=== PATIENT | male | born 1975 | race Caucasian/White ===

== ENCOUNTER 2020-10-16 06:04 | Inpatient (IN) ==
[2020-10-16 06:48] LABS: ABG ALLEN TEST POS; ABG BASE EXCESS 5.8 mmol/L (-2.0-2.0); ABG HCO3 27.5 mmol/L (22-26)
--- NOTE | 2020-10-16 06:48 | RAD ---
HISTORYCOVID-19, SOB BODY ACHES, HEADACHESTUDYCHEST, 1 VIEWCOMPARISONNoneFINDINGSCardiac silhouette is normal in size. There are patchy airspace opacities throughout the peripheral left lung and right lung base. There is no significant pleural effusion or pneumothorax.IMPRESSIONLeft greater than right airspace disease as above, which given patient history is most compatible with multifocal atypical pneumonia from COVID-19 infection. Clinical correlation and continued PA/lateral radiographic follow-up recommended.Electronically signed by: ALISON EDWARDS (Oct 16, 2020 06:46:16)
[2020-10-16 06:49] LABS: BASOPHILS % (AUTO) 0.4 % (0.2-1.0); LYMPHOCYTES # (AUTO) 1.3 X10^3/uL (1.3-2.9); MEAN CORPUSCULAR HEMOGLOBIN 29.8 pg (27.0-34.0)
[2020-10-16 06:51] LABS: HEMATOCRIT 41.2 % (42.0-54.0); HEMOGLOBIN 14.2 g/dL (13.5-18.0); LYMPHOCYTES % (AUTO) 14.5 % (21.0-51.0); MEAN CORPUSCULAR HGB CONC 34.5 g/dL (33.0-35.0); MEAN CORPUSCULAR VOLUME 86.5 fL (80.0-100.0); MEAN PLATELET VOLUME 7.7 fL (7.4-11.0); MONOCYTES % (AUTO) 11.3 % (0.0-13.0); NEUTROPHILS # (AUTO) 6.4 x10^3/uL (2.2-4.8); NEUTROPHILS % (AUTO) 73.8 % (42.0-75.0); PLATELET COUNT 233 X10^3/uL (150.0-450.0); RED BLOOD COUNT 4.76 X10^6/uL (4.7-6.0); RED CELL DISTRIBUTION WIDTH 13.4 % (11.6-16.5)
[2020-10-16 07:01] LABS: ALANINE AMINOTRANSFERASE 25 Units/L (12-78); ALKALINE PHOSPHATASE 51 Units/L (46-116); ASPARTATE AMINO TRANSFERASE 40 Units/L (15-37); BLOOD UREA NITROGEN 10 mg/dL (7-18); CALCIUM 7.7 mg/dL (8.5-10.1); CARBON DIOXIDE 28.4 mmol/L (21-32); CHLORIDE 104 mmol/L (98-107); COR CA(FOR HYPOALB) 8.5 mg/dL (8.5-10.1); CREATININE 0.95 mg/dL (0.70-1.30); SODIUM 142 mmol/L (136-145); TOTAL PROTEIN 7.1 g/dL (6.4-8.2); eGFR NON BLACK RACES > 60 (>60)
--- NOTE | 2020-10-16 07:12 | DR.SOBA ---
HPI Time Seen Time Seen by Provider: 10/16/20 07:06 Primary Care Physician Primary Care Physician: PAGE HPI Comment HPI Comment: Cough and congestion x one week; diagnosed with covid ; getting worse despite abx with body aches, choi, fevers, chills, and sob; is now sick.. Complaints Chief Complaint:: PT STATES" I HAVE BEEN SICK SINCE LAST SATURDAY MY HEAD IS ABOUT TO BUST AND MY BODY IS HURTING ALL OVER" Source History Provided: Patient Mode of Arrival Mode of Arrival: Ambulatory Timing Onset of Chief Complaint: 10/08/20 PMH PMH Past Medical History: No Past Surgical History: Yes Surgical History: Bowel Resection and Cholecystectomy Family History History of Family Medical Conditions: Yes Family Medical History: Coronary Artery Disease Social History Type of Tobacco Use: None Does any household member use tobacco: No Alcohol Use: Occasionally Do you use any recreational Drugs:: No Lives With: Family Lives Where: Home Infectious screening In the last 2 months have you had wt loss of >10#?: NO Have you had fever, night sweats or hemotysis?: No Have you traveled outside the country in the last 6 months?: No Isolation: Droplet ROS Review of Systems Eyes: No Symptoms Reported ENTM: No Symptoms Reported Cardiovascular: No Symptoms Reported Gastrointestinal/Abdominal: No Symptoms Reported Genitourinary: No Symptoms Reported Integumentary: No Symptoms Reported Hematologic/Lymphatic: No Symptoms Reported Endocrine: No Symptoms Reported Psychiatric: No Symptoms Reported PE Vital Signs Vitals: Temperature 100.5 F Pulse Rate 107 Respiratory Rate 22 Blood Pressure [Right Arm] 136/85 Blood Pressure 142/85 O2 Sat by Pulse Oximetry 93 General Limitations: No Limitations General Appearance: Alert (appears mod-severely ill) and In No Apparent Distress Head Head Exam: Normal Inspection and Atraumatic Eyes Eye exam: Normal Appearance ENT ENT Exam: Normal Exam and Normal Oropharynx Neck Neck Exam: Normal Inspection, Full ROM and Trachea Midline Chest Chest Inspection: Normal Inspection and Symmetric Chest Wall Rise Respiratory Respiratory Exam: Bilateral: Decreased Breath Sounds (scattered crackles in bases) Cardiovascular Cardiovascular Exam: Normal Rhythm and Tachycardia Abdominal Exam Abdominal Exam: Normal Inspection, Normal Bowel Sounds and Soft Extremities Extremities Exam: Normal Inspection and Full ROM Back Back Exam: Normal Inspection Neurologic Neurological Exam: Alert, Oriented X3 and CN II-XII Intact Psychiatric Psychiatric Exam: Normal Affect and Normal Mood Skin Skin Exam: Warm, Intact and Diaphoresis COURSE Consultation Call Returned: 07:35 (Dr Garcia accepts admission) ROR Labs Reviewed Result Diagrams: 10/16/20 06:41 10/16/20 06:41 Laboratory: WBC 9.9 X10^3/uL (3.6-10.0) 10/16/20 06:41 RBC 4.76 X10^6/uL (4.7-6.0) 10/16/20 06:41 Hgb 14.2 g/dL (13.5-18.0) 10/16/20 06:41 Hct 41.2 % (42.0-54.0) L 10/16/20 06:41 MCV 86.5 fL (80.0-100.0) 10/16/20 06:41 MCH 29.8 pg (27.0-34.0) 10/16/20 06:41 MCHC 34.5 g/dL (33.0-35.0) 10/16/20 06:41 RDW 13.4 % (11.6-16.5) 10/16/20 06:41 Plt Count 233 X10^3/uL (150.0-450.0) 10/16/20 06:41 Plt Count Comment Adequate (ADEQUATE) 10/16/20 06:41 MPV 7.7 fL (7.4-11.0) 10/16/20 06:41 Neut % (Auto) 73.8 % (42.0-75.0) 10/16/20 06:41 Lymph % (Auto) 14.5 % (21.0-51.0) L 10/16/20 06:41 [place] % (Auto) 11.3 % (0.0-13.0) 10/16/20 06:41 Eos % (Auto) 0.0 % (0.9-2.9) L 10/16/20 06:41 Baso % (Auto) 0.4 % (0.2-1.0) 10/16/20 06:41 Neut # (Auto) 6.4 x10^3/uL (2.2-4.8) H 10/16/20 06:41 Lymph # (Auto) 1.3 X10^3/uL (1.3-2.9) 10/16/20 06:41 [place] # (Auto) 1.0 x10^3/uL (0.3-0.8) H 10/16/20 06:41 Eos # (Auto) 0.0 x10^3/uL (0.0-0.2) 10/16/20 06:41 Baso # (Auto) 0.0 X10^3/uL (0.0-0.1) 10/16/20 06:41 Absolute Nucleated RBC 0.1 /100WBC 10/16/20 06:41 Plt Morphology Comment Normal (NORMAL) 10/16/20 06:41 RBC Morphology Normal (NORMAL) 10/16/20 06:41 D-Dimer 0.50 ug/ml (0.0-0.57) 10/16/20 06:41 Sample Site Rr 10/16/20 06:24 ABG pH 7.570 (7.35-7.45) H* 10/16/20 06:24 ABG pCO2 30.0 mmHg (35.0-45.0) L 10/16/20 06:24 ABG pO2 57.0 mmHg (80.0-100.0) L 10/16/20 06:24 ABG HCO3 27.5 mmol/L (22-26) H 10/16/20 06:24 ABG O2 Saturation 93.0 % (90-100) 10/16/20 06:24 ABG Base Excess 5.8 mmol/L (-2.0-2.0) H 10/16/20 06:24 Phillip Test Pos 10/16/20 06:24 A-a Gradient 55.0 mmHg 10/16/20 06:24 FiO2 21.0 10/16/20 06:24 Blood Gas Comments Fozia well sw 10/16/20 06:24 Sodium 142 mmol/L (136-145) 10/16/20 06:41 Corrected Sodium TNP 10/16/20 06:41 Potassium 3.8 mmol/L (3.5-5.1) 10/16/20 06:41 Chloride 104 mmol/L (98-107) 10/16/20 06:41 Carbon Dioxide 28.4 mmol/L (21-32) 10/16/20 06:41 BUN 10 mg/dL (7-18) 10/16/20 06:41 Creatinine 0.95 mg/dL (0.70-1.30) 10/16/20 06:41 Est GFR (MDRD) Af Amer > 60 (>60) 10/16/20 06:41 Est GFR (MDRD) Non-Af > 60 (>60) 10/16/20 06:41 Glucose 109 mg/dL (65-99) H 10/16/20 06:41 Calcium 7.7 mg/dL (8.5-10.1) L 10/16/20 06:41 Corrected Calcium 8.5 mg/dL (8.5-10.1) 10/16/20 06:41 Ferritin 450 ng/mL (26-388) H 10/16/20 06:41 Total Bilirubin 0.20 mg/dL (0.2-1.0) 10/16/20 06:41 AST 40 Units/L (15-37) H 10/16/20 06:41 ALT 25 Units/L (12-78) 10/16/20 06:41 Alkaline Phosphatase 51 Units/L (46-116) 10/16/20 06:41 C-Reactive Protein 33.70 mg/L (0-3.0) H 10/16/20 06:41 B-Natriuretic Peptide 29.1 pg/mL (0-79) 10/16/20 06:41 Total Protein 7.1 g/dL (6.4-8.2) 10/16/20 06:41 Albumin 3.0 g/dL (3.4-5.0) L 10/16/20 06:41 Globulin 4.1 g/dL (2.5-4.5) 10/16/20 06:41 Albumin/Globulin Ratio 0.7 Ratio (1.1-2.1) L 10/16/20 06:41 SARS-CoV-2 (PCR) Positive (NEGATIVE) A 10/16/20 06:26 Influenza Type A (PCR) Negative (NEGATIVE) 10/16/20 06:26 Influenza Type B (PCR) Negative (NEGATIVE) 10/16/20 06:26 RSV (PCR) Negative (NEGATIVE) 10/16/20 06:26 XRAY XRAY Interpreted by: Radiologist X-ray Results: cxr: Left greater than right airspace disease as above, which given patient history is most compatible with multifocal atypical pneumonia from COVID-19 infection. Clinical correlation and continued PA/lateral radiographic follow-up recommended. Opioid Opioid Risk Tool Total: 0 Total Score Risk Category: Low Risk Copyright: [facility] predicting aberrant behaviors Diagnosis Discharge Problem: Bilateral interstitial pneumonia, Hypoxia Sepsis Qualifiers: Sepsis type: sepsis due to unspecified organism Sepsis acute organ dysfunction status: with acute organ dysfunction Severe sepsis acute organ dysfunction type: acute respiratory failure Acute respiratory failure type: with hypoxia Severe sepsis shock status: without septic shock Qualified Code(s): A41.9 - Sepsis, unspecified organism Headache Qualifiers: Headache type: other headache syndrome Qualified Code(s): G44.89 - Other headache syndrome
[2020-10-16] MEDS ORDERED: ZOSYN VIAL 3.375 GRAMS 3.375 G in NS 100 ML IV + SPIKE MINIBAG* 100 ML IV ONE (07:23)
[2020-10-16] MEDS ORDERED: NS 1000 ML 1,000 ML IV ONE (07:23)
[2020-10-16] MEDS ORDERED: TORADOL 30 MG VIAL IVP ONE (07:24)
[2020-10-16] MEDS ORDERED: NORCO 7.5/325 MG TAB PO ONE (07:24)
[2020-10-16 07:27] LABS: PLATELET MORPHOLOGY COMMENT NORMAL (NORMAL)
[2020-10-16 07:28] LABS: WHITE BLOOD COUNT 9.9 X10^3/uL (3.6-10.0)
[2020-10-16] MEDS ORDERED: NS 1000 ML 1,000 ML ONE ×3 (07:34→23:26)
[2020-10-16] MEDS ORDERED: TORADOL 30 MG VIAL ONE (07:34)
[2020-10-16] MEDS ORDERED: ZOSYN VIAL 3.375 GRAMS IV ONE ×3 (07:34→13:15)
[2020-10-16] MEDS ORDERED: NORCO 7.5/325 MG TAB ONE (07:34)
[2020-10-16] MEDS ORDERED: NS 100 ML IV + SPIKE MINIBAG* 100 ML IV ONE ×3 (07:35→13:15)
[2020-10-16] MEDS ORDERED: OFIRMEV IV 1000 MG VIAL 1,000 MG/100 ML VIAL IV PRN (07:45)
[2020-10-16] MEDS ORDERED: NORCO 5/325 MG TAB PO PRN (07:45)
[2020-10-16] MEDS ORDERED: ZOFRAN INJ 4 MG VIAL IVP PRN (07:54)
[2020-10-16] MEDS: NS 1000 ML 1,000 ML IV SCH ×2 (08:49→15:21)
[2020-10-16] MEDS: ZOSYN VIAL 3.375 GRAMS 3.375 G in NS 100 ML IV + SPIKE MINIBAG* 100 ML IV SCH ×3 (09:22→23:16)
[2020-10-16] MEDS ORDERED: PHARMACY CONSULT - IVERMECTIN XX SCH (12:00)
--- NOTE | 2020-10-16 12:11 | DR.H&P ---
H&P History & Physical for Day of: H&P Date: 10/16/20 Chief Complaint Chief Complaint: Generalized weakness, Fevers, chills Shortness of breath, Headache Allergies Allergies Allergy/AdvReac Type Severity Reaction Status Date / Time levofloxacin [From Levaquin] AdvReac Verified 10/16/20 09:37 History of Present Illness History of Present Illness: Pt is a 45 year old male past medical history of Hyperlipidemia presenting after having fever, chills, shortness of breath, fatigue, weakness, and headaches for over week. Pt reports being tested multiple times for COVID-19 without positive result until recently. He states that his symptoms have progressively worsened over the past 2-3 days and he is having difficulty sleeping at night. Labs/imaging: COVID-19 positive, Wbc 9.9, Hgb 14.2, Plt 233, Na 142, K 3.8, Creatinine 0.95, Glucose 109, LA 1.5, AST 40, ALT 25, ALKP 51, CRP 33, BNP 29, D-dimer 0.50, ABG: pH 7.57, pCO2 30, pO2 57, HCO3 27, O2sat 93% on FiO2 21%. Blood culture pending, CXR: Left greater than right airspace disease as above, which given patient history is most compatible with multifocal atypical pneumonia from COVID-19 infection. Will start patient on treatment course that includes: IVF NS@75ml/h, Remdesivir, Solumedrol 80mg q8h, scheduled Bronchodilators, Antibiotics: Zosyn, Ivermectin, immune supporting supplements, supplemental O2, I/S, Respiratory therapy consult, Pneumonia protocol. He is currently requiring 2L nasal cannula supplemental oxygen, will titrate/wean as tolerated. Resume home medications. Continue to monitor and follow up labs/imaging. Time spent on clinical assessment, reviewing labs and imaging, decision making, and documentation greater than 45 minutes. Past Medical History Past Medical History: Dyslipidemia Past Surgical History Surgical History: Bowel Resection and Cholecystectomy Family History Family Medical History: Coronary Artery Disease Social History Type of Tobacco Use: None Does any household member use tobacco: No Alcohol Use: Occasionally Medications Home Medications: levofloxacin [From Levaquin] Adverse Reaction (Verified 10/16/20 09:37) CONTINUE taking the following medications albuterol sulfate 1 puff INHALATION PRN PRN 10/16/20 [History] hydroxychloroquine 200 mg PO BID 10/16/20 [History] ivermectin 24 mg PO DAILY 10/16/20 [History] levofloxacin 500 mg PO BID 10/16/20 [History] Labs Result Diagrams: 10/16/20 06:41 10/16/20 06:41 Labs: Laboratory WBC 9.9 X10^3/uL (3.6-10.0) 10/16/20 06:41 RBC 4.76 X10^6/uL (4.7-6.0) 10/16/20 06:41 Hgb 14.2 g/dL (13.5-18.0) 10/16/20 06:41 Hct 41.2 % (42.0-54.0) L 10/16/20 06:41 MCV 86.5 fL (80.0-100.0) 10/16/20 06:41 MCH 29.8 pg (27.0-34.0) 10/16/20 06:41 MCHC 34.5 g/dL (33.0-35.0) 10/16/20 06:41 RDW 13.4 % (11.6-16.5) 10/16/20 06:41 Plt Count 233 X10^3/uL (150.0-450.0) 10/16/20 06:41 Plt Count Comment Adequate (ADEQUATE) 10/16/20 06:41 MPV 7.7 fL (7.4-11.0) 10/16/20 06:41 Neut % (Auto) 73.8 % (42.0-75.0) 10/16/20 06:41 Lymph % (Auto) 14.5 % (21.0-51.0) L 10/16/20 06:41 [place] % (Auto) 11.3 % (0.0-13.0) 10/16/20 06:41 Eos % (Auto) 0.0 % (0.9-2.9) L 10/16/20 06:41 Baso % (Auto) 0.4 % (0.2-1.0) 10/16/20 06:41 Neut # (Auto) 6.4 x10^3/uL (2.2-4.8) H 10/16/20 06:41 Lymph # (Auto) 1.3 X10^3/uL (1.3-2.9) 10/16/20 06:41 [place] # (Auto) 1.0 x10^3/uL (0.3-0.8) H 10/16/20 06:41 Eos # (Auto) 0.0 x10^3/uL (0.0-0.2) 10/16/20 06:41 Baso # (Auto) 0.0 X10^3/uL (0.0-0.1) 10/16/20 06:41 Absolute Nucleated RBC 0.1 /100WBC 10/16/20 06:41 Plt Morphology Comment Normal (NORMAL) 10/16/20 06:41 RBC Morphology Normal (NORMAL) 10/16/20 06:41 D-Dimer 0.50 ug/ml (0.0-0.57) 10/16/20 06:41 Sample Site Rr 10/16/20 06:24 ABG pH 7.570 (7.35-7.45) H* 10/16/20 06:24 ABG pCO2 30.0 mmHg (35.0-45.0) L 10/16/20 06:24 ABG pO2 57.0 mmHg (80.0-100.0) L 10/16/20 06:24 ABG HCO3 27.5 mmol/L (22-26) H 10/16/20 06:24 ABG O2 Saturation 93.0 % (90-100) 10/16/20 06:24 ABG Base Excess 5.8 mmol/L (-2.0-2.0) H 10/16/20 06:24 Phillip Test Pos 10/16/20 06:24 A-a Gradient 55.0 mmHg 10/16/20 06:24 FiO2 21.0 10/16/20 06:24 Blood Gas Comments Fozia well sw 10/16/20 06:24 Sodium 142 mmol/L (136-145) 10/16/20 06:41 Corrected Sodium TNP 10/16/20 06:41 Potassium 3.8 mmol/L (3.5-5.1) 10/16/20 06:41 Chloride 104 mmol/L (98-107) 10/16/20 06:41 Carbon Dioxide 28.4 mmol/L (21-32) 10/16/20 06:41 BUN 10 mg/dL (7-18) 10/16/20 06:41 Creatinine 0.95 mg/dL (0.70-1.30) 10/16/20 06:41 Est GFR (MDRD) Af Amer > 60 (>60) 10/16/20 06:41 Est GFR (MDRD) Non-Af > 60 (>60) 10/16/20 06:41 Glucose 109 mg/dL (65-99) H 10/16/20 06:41 Lactic Acid 1.5 mmol/L (0.4-2.0) 10/16/20 07:37 Calcium 7.7 mg/dL (8.5-10.1) L 10/16/20 06:41 Corrected Calcium 8.5 mg/dL (8.5-10.1) 10/16/20 06:41 Ferritin 450 ng/mL (26-388) H 10/16/20 06:41 Total Bilirubin 0.20 mg/dL (0.2-1.0) 10/16/20 06:41 AST 40 Units/L (15-37) H 10/16/20 06:41 ALT 25 Units/L (12-78) 10/16/20 06:41 Alkaline Phosphatase 51 Units/L (46-116) 10/16/20 06:41 C-Reactive Protein 33.70 mg/L (0-3.0) H 10/16/20 06:41 B-Natriuretic Peptide 29.1 pg/mL (0-79) 10/16/20 06:41 Total Protein 7.1 g/dL (6.4-8.2) 10/16/20 06:41 Albumin 3.0 g/dL (3.4-5.0) L 10/16/20 06:41 Globulin 4.1 g/dL (2.5-4.5) 10/16/20 06:41 Albumin/Globulin Ratio 0.7 Ratio (1.1-2.1) L 10/16/20 06:41 SARS-CoV-2 (PCR) Positive (NEGATIVE) A 10/16/20 06:26 Influenza Type A (PCR) Negative (NEGATIVE) 10/16/20 06:26 Influenza Type B (PCR) Negative (NEGATIVE) 10/16/20 06:26 RSV (PCR) Negative (NEGATIVE) 08/08/21 06:26 Review of Systems Constitutional: Fever, Chills and Weakness Eyes: No Symptoms Reported ENT: No Symptoms Reported Respiratory: Cough and Shortness of Breath Cardiovascular: No Symptoms Reported Gastrointestinal: No Symptoms Reported Genitourinary: No Symptoms Reported Musculoskeletal: No Symptoms Reported Skin: No Symptoms Reported Neurological: No Symptoms Reported Physical Exam Vital Signs: Temperature 100.8 F Pulse Rate 89 Respiratory Rate 20 Blood Pressure [Right Arm] 136/85 Blood Pressure 122/67 O2 Sat by Pulse Oximetry 90 Oriented: Normal Eyes: Normal Ear: Normal Nose: Normal Throat: Normal Respiratory: Diminished Throughout and Rales Throughout Cardiovascular: Normal : Normal Auscultation: Bowel Sounds: Normal Palpation: Normal Tenderness: Normal Skin: Normal Musculoskeletal: Normal Psychiatric: Normal Mood Description: Calm and Appropriate Affect: Normal Speech Pattern: Clear and Appropriate Assessment/Plan (1) Pneumonia due to COVID-19 virus: Status: Acute Plan: Per protocol. Review H&P Reviewed: Yes Patient was examined?: Yes
[2020-10-16] MEDS ORDERED: REMDESIVIR 200 MG in NS 250 ML IV 250 ML IV ONE (13:00)
[2020-10-16] MEDS ORDERED: IVERMECTIN ONE (13:14)
[2020-10-16] MEDS ORDERED: SOLU-Medrol 40 MG VIAL ONE (13:15)
[2020-10-16] MEDS: IVERMECTIN PO SCH (13:20)
[2020-10-16] MEDS: SOLU-Medrol 40 MG VIAL IVP SCH ×2 (13:21→21:29)
[2020-10-16] MEDS ORDERED: NS 50 ML IV 50 ML IV ONE (14:54)
[2020-10-16] MEDS ORDERED: ASCORBIC ACID INJ MULTI-DOSE VIAL IV ONE (14:55)
[2020-10-16 15:18] LABS: BILIRUBIN,URINE NEGATIVE (NEGATIVE); BLOOD/HEMOGLOBIN,URINE 1+ (NEGATIVE); GLUCOSE, URINE NEGATIVE (NEGATIVE); KETONES,URINE NEGATIVE (NEGATIVE); LEUKOCYTE ESTERASE ,URINE NEGATIVE (NEGATIVE); NITRITES,URINE NEGATIVE (NEGATIVE); PROTEIN,URINE 2+ (NEGATIVE); UROBILINOGEN,URINE NORMAL (NORMAL)
[2020-10-16] MEDS: ASCORBIC ACID INJ MULTI-DOSE VIAL 1,500 MG in NS 100 ML IV 100 ML IV SCH ×2 (15:21→21:28)
[2020-10-16 15:32] LABS: APPEARANCE,URINE CLEAR (CLEAR); COLOR,URINE YELLOW (YELLOW)
[2020-10-16 15:34] LABS: BACTERIA,URINE TRACE /HPF (NEGATIVE); FINE GRANULAR CASTS,URINE RARE /LPF (NEGATIVE); HYALINE CASTS, URINE FEW /LPF (NEGATIVE); MUCUS,URINE NUMEROUS /HPF (NEGATIVE); SQUAMOUS EPITHELIAL CELL,UR FEW /HPF (NEGATIVE); TRANSITIONAL EPI CELLS,URINE FEW /HPF (NEGATIVE)
[2020-10-16] MEDS: BROVANA IN SCH (20:56)
[2020-10-16] MEDS: PULMICORT NEB TX 0.5 MG NEB SCH (21:00)
[2020-10-16] MEDS: LOVENOX INJ 30 MG SYR SC SCH (21:30)
[2020-10-16] MEDS: PEPCID TAB 40 MG PO SCH (21:31)
[2020-10-16] MEDS: ZINC SULFATE PO SCH (21:31)
[2020-10-16] MEDS ORDERED: RESTORIL CAP 15 MG PO ONE (22:49)
[2020-10-17] MEDS ORDERED: NS 100 ML IV 100 ML ONE (02:22)
[2020-10-17] MEDS ORDERED: ASCORBIC ACID INJ MULTI-DOSE VIAL IV ONE ×3 (02:23→16:55)
[2020-10-17] MEDS: ASCORBIC ACID INJ MULTI-DOSE VIAL 1,500 MG in NS 100 ML IV 100 ML IV SCH ×4 (03:48→20:44)
[2020-10-17 04:46] LABS: BASOPHILS % (AUTO) 0.1 % (0.2-1.0); HEMOGLOBIN 13.6 g/dL (13.5-18.0); LYMPHOCYTES # (AUTO) 0.4 X10^3/uL (1.3-2.9); LYMPHOCYTES % (AUTO) 7.3 % (21.0-51.0); MEAN CORPUSCULAR HEMOGLOBIN 29.4 pg (27.0-34.0); MEAN CORPUSCULAR HGB CONC 34.1 g/dL (33.0-35.0); MEAN CORPUSCULAR VOLUME 86.2 fL (80.0-100.0); MEAN PLATELET VOLUME 7.3 fL (7.4-11.0); MONOCYTES # (AUTO) 0.2 x10^3/uL (0.3-0.8); MONOCYTES % (AUTO) 4.2 % (0.0-13.0); NEUTROPHILS # (AUTO) 4.9 x10^3/uL (2.2-4.8); NEUTROPHILS % (AUTO) 88.4 % (42.0-75.0); PLATELET COUNT 255 X10^3/uL (150.0-450.0); RED BLOOD COUNT 4.63 X10^6/uL (4.7-6.0); RED CELL DISTRIBUTION WIDTH 13.4 % (11.6-16.5); WHITE BLOOD COUNT 5.6 X10^3/uL (3.6-10.0)
[2020-10-17 04:57] LABS: ALANINE AMINOTRANSFERASE 20 Units/L (12-78); ALBUMIN 2.6 g/dL (3.4-5.0); ALKALINE PHOSPHATASE 46 Units/L (46-116); ASPARTATE AMINO TRANSFERASE 34 Units/L (15-37); BLOOD UREA NITROGEN 11 mg/dL (7-18); CALCIUM 7.7 mg/dL (8.5-10.1); CARBON DIOXIDE 27.3 mmol/L (21-32); CHLORIDE 105 mmol/L (98-107); COR CA(FOR HYPOALB) 8.8 mg/dL (8.5-10.1); COR NA(FOR HYPERGLY) 143 mmol/L (136-145); CREATININE 0.84 mg/dL (0.70-1.30); SODIUM 142 mmol/L (136-145); TOTAL PROTEIN 6.7 g/dL (6.4-8.2); eGFR NON BLACK RACES > 60 (>60)
[2020-10-17] MEDS: NS 1000 ML 1,000 ML IV SCH ×3 (05:30→23:33)
[2020-10-17] MEDS: ZOSYN VIAL 3.375 GRAMS 3.375 G in NS 100 ML IV + SPIKE MINIBAG* 100 ML IV SCH ×3 (06:12→21:47)
[2020-10-17] MEDS: SOLU-Medrol 40 MG VIAL IVP SCH ×3 (06:12→21:00)
--- NOTE | 2020-10-17 06:17 | RAD ---
HISTORYFollow-up pneumoniaSTUDYChest AP [id number] heart remains within normal limits in size. The vidya are normal. Subtle interstitial and ground-glass infiltrates remain in the right lower perihilar region. Increasing confluent ground-glass infiltrates are present in the left upper lobe. No pleural effusions are identified. Bony thorax is unremarkable.IMPRESSIONNo change interstitial and ground-glass infiltrates right lower perihilar regionIncreasing left upper lobe confluent ground-glass infiltrates when compared to the prior examinationElectronically signed by: KEVAN BOWIE (Oct 17, 2020 06:15:11)
[2020-10-17] MEDS ORDERED: IVERMECTIN ONE (08:34)
[2020-10-17] MEDS ORDERED: PEPCID TAB 40 MG ONE (08:35)
[2020-10-17] MEDS ORDERED: NS 50 ML IV 50 ML IV ONE (08:35)
[2020-10-17] MEDS ORDERED: LOVENOX INJ 30 MG SYR SC ONE (08:35)
[2020-10-17] MEDS ORDERED: ZINC SULFATE ONE (08:35)
[2020-10-17] MEDS ORDERED: NORCO 5/325 MG TAB ONE (08:35)
[2020-10-17] MEDS ORDERED: VITAMIN D3 125 mcg (5,000 UNITS) ONE (08:35)
[2020-10-17] MEDS: IVERMECTIN PO SCH (09:28)
[2020-10-17] MEDS: VITAMIN D3 125 mcg (5,000 UNITS) PO SCH (09:29)
[2020-10-17] MEDS: ZINC SULFATE PO SCH ×2 (09:29→20:41)
[2020-10-17] MEDS: VITAMIN A PO SCH (09:29)
[2020-10-17] MEDS: PEPCID TAB 40 MG PO SCH ×2 (09:30→20:41)
[2020-10-17] MEDS: LOVENOX INJ 30 MG SYR SC SCH ×2 (09:30→20:45)
[2020-10-17] MEDS: BROVANA IN SCH ×2 (10:16→20:59)
[2020-10-17] MEDS: PULMICORT NEB TX 0.5 MG NEB SCH ×2 (10:16→21:03)
[2020-10-17] MEDS ORDERED: REMDESIVIR IV ONE (11:35)
[2020-10-17] MEDS ORDERED: NS 250 ML IV 250 ML IV ONE (11:35)
[2020-10-17] MEDS: REMDESIVIR 100 MG in NS 250 ML IV 250 ML IV SCH (11:45)
[2020-10-17] MEDS ORDERED: SOLU-Medrol 125 MG VIAL ONE (13:06)
[2020-10-17] MEDS ORDERED: NS 100 ML IV + SPIKE MINIBAG* 100 ML IV ONE (13:07)
[2020-10-17] MEDS ORDERED: ZOSYN VIAL 3.375 GRAMS IV ONE (13:07)
--- NOTE | 2020-10-17 13:13 | PCM.PROG ---
Progress Note Progress Note for Day of Date of Exam: 10/17/20 Subjective Subjective: Pt is a 45 year old male past medical history of Hyperlipidemia admitted for COVID-19 pneumonia with hypoxia. This morning he reports his strength has improved a little but he is still having significant shortness of breath. Labs/imaging: Wbc 5.6, Hgb 13.6, Plt 255, Na 142, K 4.1, Creatinine 0.84, Glucose 156, CRP 33>70.5, Blood culture NGTD, CXR: No change interstitial and ground-glass infiltrates right lower perihilar region. Increasing left upper lobe confluent ground-glass infiltrates when compared to the prior examination. Treatment course that includes: IVF NS@75ml/h, Remdesivir, Solumedrol 80mg q8h, scheduled Bronchodilators, Antibiotics: Zosyn, Ivermectin, immune supporting s upplements, supplemental O2, I/S, Respiratory therapy consult, Pneumonia protocol. He is currently requiring 5L nasal cannula supplemental oxygen, will titrate/wean as tolerated. Continue to closely monitor and follow up labs/imaging. Time spent on clinical assessment, reviewing labs and imaging, decision making, and documentation greater than 45 minutes. Past Medical Family Social History Past Med/Fam/Surg Hx: No changes since H&P Allergies: Allergies levofloxacin [From Levaquin] Adverse Reaction (Verified 10/16/20 09:37) Review of Systems ROS: No change since H&P Vital Signs and I&O's Vital Signs: Temperature 98.0 F Pulse Rate [Left Radial] 97 Pulse Rate 82 Respiratory Rate 20 Blood Pressure [Left Arm] 143/77 Blood Pressure [Right Arm] 125/68 Blood Pressure 122/67 O2 Sat by Pulse Oximetry 96 Intake and Output: Intake & Output 10/14/20 10/15/20 10/16/20 10/17/20 23:59 23:59 23:59 23:59 Intake Total 1935 / 1935 294 / 294 Output Total 525 / 525 2700 / 2700 Balance 1410 / 1410 -2406 / -2406 Physical Exam Oriented: Normal Eyes: Normal Ear: Normal Nose: Normal Throat: Normal Respiratory: Diminished and Rales Cardiovascular: Normal : Normal Auscultation: Bowel Sounds: Normal Tenderness: Normal Skin: Normal Musculoskeletal: Normal Psychiatric: Normal Mood Description: Calm and Appropriate Affect: Normal Speech Pattern: Clear and Appropriate Laboratory and Diagnostics Result Diagrams: 10/17/20 04:05 10/17/20 04:05 Labs: 10/16/20 07:40 Blood Blood Culture - Preliminary 10/16/20 07:37 Blood Blood Culture - Preliminary Laboratory WBC 5.6 X10^3/uL (3.6-10.0) 10/17/20 04:05 RBC 4.63 X10^6/uL (4.7-6.0) L 10/17/20 04:05 Hgb 13.6 g/dL (13.5-18.0) 10/17/20 04:05 Hct 40.0 % (42.0-54.0) L 10/17/20 04:05 MCV 86.2 fL (80.0-100.0) 10/17/20 04:05 MCH 29.4 pg (27.0-34.0) 10/17/20 04:05 MCHC 34.1 g/dL (33.0-35.0) 10/17/20 04:05 RDW 13.4 % (11.6-16.5) 10/17/20 04:05 Plt Count 255 X10^3/uL (150.0-450.0) 10/17/20 04:05 Plt Count Comment Adequate (ADEQUATE) 10/16/20 06:41 MPV 7.3 fL (7.4-11.0) L 10/17/20 04:05 Neut % (Auto) 88.4 % (42.0-75.0) H 10/17/20 04:05 Lymph % (Auto) 7.3 % (21.0-51.0) L 10/17/20 04:05 [place] % (Auto) 4.2 % (0.0-13.0) 10/17/20 04:05 Eos % (Auto) 0.0 % (0.9-2.9) L 10/17/20 04:05 Baso % (Auto) 0.1 % (0.2-1.0) L 10/17/20 04:05 Neut # (Auto) 4.9 x10^3/uL (2.2-4.8) H 10/17/20 04:05 Lymph # (Auto) 0.4 X10^3/uL (1.3-2.9) L 10/17/20 04:05 [place] # (Auto) 0.2 x10^3/uL (0.3-0.8) L 10/17/20 04:05 Eos # (Auto) 0.0 x10^3/uL (0.0-0.2) 10/17/20 04:05 Baso # (Auto) 0.0 X10^3/uL (0.0-0.1) 10/17/20 04:05 Absolute Nucleated RBC 0.0 /100WBC 10/17/20 04:05 Plt Morphology Comment Normal (NORMAL) 10/16/20 06:41 RBC Morphology Normal (NORMAL) 10/16/20 06:41 D-Dimer 0.50 ug/ml (0.0-0.57) 10/16/20 06:41 Sample Site Rr 10/16/20 06:24 ABG pH 7.570 (7.35-7.45) H* 10/16/20 06:24 ABG pCO2 30.0 mmHg (35.0-45.0) L 10/16/20 06:24 ABG pO2 57.0 mmHg (80.0-100.0) L 10/16/20 06:24 ABG HCO3 27.5 mmol/L (22-26) H 10/16/20 06:24 ABG O2 Saturation 93.0 % (90-100) 10/16/20 06:24 ABG Base Excess 5.8 mmol/L (-2.0-2.0) H 10/16/20 06:24 Phillip Test Pos 10/16/20 06:24 A-a Gradient 55.0 mmHg 10/16/20 06:24 FiO2 21.0 10/16/20 06:24 Blood Gas Comments [facility] well 10/16/20 06:24 Sodium 142 mmol/L (136-145) 10/17/20 04:05 Corrected Sodium 143 mmol/L (136-145) 10/17/20 04:05 Potassium 4.1 mmol/L (3.5-5.1) 10/17/20 04:05 Chloride 105 mmol/L (98-107) 10/17/20 04:05 Carbon Dioxide 27.3 mmol/L (21-32) 10/17/20 04:05 BUN 11 mg/dL (7-18) 10/17/20 04:05 Creatinine 0.84 mg/dL (0.70-1.30) 10/17/20 04:05 Est GFR (MDRD) Af Amer > 60 (>60) 10/17/20 04:05 Est GFR (MDRD) Non-Af > 60 (>60) 10/17/20 04:05 Glucose 156 mg/dL (65-99) H 10/17/20 04:05 Lactic Acid 1.5 mmol/L (0.4-2.0) 10/16/20 07:37 Calcium 7.7 mg/dL (8.5-10.1) L 10/17/20 04:05 Corrected Calcium 8.8 mg/dL (8.5-10.1) 10/17/20 04:05 Ferritin 450 ng/mL (26-388) H 10/16/20 06:41 Total Bilirubin 0.40 mg/dL (0.2-1.0) 10/17/20 04:05 AST 34 Units/L (15-37) 10/17/20 04:05 ALT 20 Units/L (12-78) 10/17/20 04:05 Alkaline Phosphatase 46 Units/L (46-116) 10/17/20 04:05 C-Reactive Protein 70.50 mg/L (0-3.0) H 10/17/20 04:05 B-Natriuretic Peptide 29.1 pg/mL (0-79) 10/16/20 06:41 Total Protein 6.7 g/dL (6.4-8.2) 10/17/20 04:05 Albumin 2.6 g/dL (3.4-5.0) L 10/17/20 04:05 Globulin 4.1 g/dL (2.5-4.5) 10/17/20 04:05 Albumin/Globulin Ratio 0.6 Ratio (1.1-2.1) L 10/17/20 04:05 Specimen Type Random urine 10/16/20 15:03 Urine Color Yellow (YELLOW) 10/16/20 15:03 Urine Appearance Clear (CLEAR) 10/16/20 15:03 Urine pH 5.0 (5.0 - 8.0) 10/16/20 15:03 Ur Specific [place] 1.020 (1.000-1.030) 10/16/20 15:03 Urine Protein 2+ (NEGATIVE) 10/16/20 15:03 Urine Glucose (UA) Negative (NEGATIVE) 10/16/20 15:03 Urine Ketones Negative (NEGATIVE) 10/16/20 15:03 Urine Occult Blood 1+ (NEGATIVE) 10/16/20 15:03 Urine Nitrite Negative (NEGATIVE) 10/16/20 15:03 Urine Bilirubin Negative (NEGATIVE) 10/16/20 15:03 Urine Urobilinogen Normal (NORMAL) 10/16/20 15:03 Ur Leukocyte Esterase Negative (NEGATIVE) 10/16/20 15:03 Urine RBC 3-5 /HPF (0-3) A 10/16/20 15:03 Urine WBC 3-5 /HPF (0-5) 10/16/20 15:03 Ur Squamous Epith Cells Few /HPF (NEGATIVE) 10/16/20 15:03 Ur Transition Epith Cell Few /HPF (NEGATIVE) 10/16/20 15:03 Urine Bacteria Trace /HPF (NEGATIVE) 10/16/20 15:03 Hyaline Casts Few /LPF (NEGATIVE) 10/16/20 15:03 Fine Granular Casts Rare /LPF (NEGATIVE) 10/16/20 15:03 Urine Mucus Numerous /HPF (NEGATIVE) 10/16/20 15:03 Ur Culture Indicated? No/not indicated 10/16/20 15:03 SARS-CoV-2 (PCR) Positive (NEGATIVE) A 10/16/20 06:26 Influenza Type A (PCR) Negative (NEGATIVE) 10/16/20 06:26 Influenza Type B (PCR) Negative (NEGATIVE) 10/16/20 06:26 RSV (PCR) Negative (NEGATIVE) 10/16/20 06:26 Plan (1) Pneumonia due to COVID-19 virus: Status: Acute Plan: Per protocol.
--- NOTE | 2020-10-17 15:22 | CT ---
CT head without contrastIndication: Severe headache and syncopeCOMPARISONNone availableTECHNIQUEAxial images from the skullbase to the vertex without contrast. Coronal and sagittal reformats provided.FINDINGSThere is no acute intracranial hemorrhage, mass or mass effect. No extra-axial fluid collections identified. Ventricles and sulci are normal. No osseous lesions seen. Paranasal sinuses and mastoid air cells are clear where visualized. No abnormal area of hypoattenuation to suggest acute infarction seen.IMPRESSIONNo acute intracranial hemorrhage.Electronically signed by: ROXANA BARRIENTOS (Oct 17, 2020 15:19:56)
[2020-10-18] MEDS ORDERED: RESTORIL CAP 15 MG PO ONE (01:39)
[2020-10-18] MEDS: RESTORIL CAP 15 MG PO PRN ×2 (01:43→21:05)
[2020-10-18] MEDS: ASCORBIC ACID INJ MULTI-DOSE VIAL 1,500 MG in NS 100 ML IV 100 ML IV SCH (02:01)
[2020-10-18] MEDS: SOLU-Medrol 40 MG VIAL IVP SCH ×3 (05:09→21:08)
[2020-10-18] MEDS: ZOSYN VIAL 3.375 GRAMS 3.375 G in NS 100 ML IV + SPIKE MINIBAG* 100 ML IV SCH ×3 (05:26→21:47)
[2020-10-18 06:00] LABS: BASOPHILS % (AUTO) 0.1 % (0.2-1.0); HEMATOCRIT 38.9 % (42.0-54.0); HEMOGLOBIN 13.1 g/dL (13.5-18.0); LYMPHOCYTES # (AUTO) 0.6 X10^3/uL (1.3-2.9); LYMPHOCYTES % (AUTO) 4.2 % (21.0-51.0); MEAN CORPUSCULAR HEMOGLOBIN 29.1 pg (27.0-34.0); MEAN CORPUSCULAR HGB CONC 33.7 g/dL (33.0-35.0); MEAN CORPUSCULAR VOLUME 86.4 fL (80.0-100.0); MEAN PLATELET VOLUME 7.3 fL (7.4-11.0); MONOCYTES # (AUTO) 0.8 x10^3/uL (0.3-0.8); MONOCYTES % (AUTO) 5.7 % (0.0-13.0); NEUTROPHILS # (AUTO) 12.3 x10^3/uL (2.2-4.8); PLATELET COUNT 303 X10^3/uL (150.0-450.0); RED BLOOD COUNT 4.51 X10^6/uL (4.7-6.0); RED CELL DISTRIBUTION WIDTH 13.6 % (11.6-16.5); WHITE BLOOD COUNT 13.7 X10^3/uL (3.6-10.0)
--- NOTE | 2020-10-18 06:17 | RAD ---
HISTORYPNEUMONIA F/USTUDYCHEST, 1 VIEWCOMPARISONOne day prior.TECHNIQUEAP view of the chestFINDINGSCardiac and mediastinal contours are within normal limits. No significant change in bilateral airspace and interstitial opacities. This appears worst in the left peripheral midlung. No definite pleural effusion or pneumothorax.IMPRESSIONNo significant change in bilateral pneumonia.Electronically signed by: Darrick Cagle (Oct 18, 2020 06:15:08)
[2020-10-18 06:33] LABS: ALANINE AMINOTRANSFERASE 22 Units/L (12-78); ALBUMIN 2.4 g/dL (3.4-5.0); ALKALINE PHOSPHATASE 45 Units/L (46-116); ASPARTATE AMINO TRANSFERASE 31 Units/L (15-37); BLOOD UREA NITROGEN 12 mg/dL (7-18); CALCIUM 7.7 mg/dL (8.5-10.1); CARBON DIOXIDE 28.6 mmol/L (21-32); CHLORIDE 109 mmol/L (98-107); COR NA(FOR HYPERGLY) 147 mmol/L (136-145); CREATININE 0.89 mg/dL (0.70-1.30); SODIUM 145 mmol/L (136-145); TOTAL PROTEIN 6.3 g/dL (6.4-8.2); eGFR NON BLACK RACES > 60 (>60)
[2020-10-18] MEDS: BROVANA IN SCH ×2 (09:00→21:15)
[2020-10-18] MEDS: PULMICORT NEB TX 0.5 MG NEB SCH ×2 (09:00→21:15)
[2020-10-18] MEDS: ZINC SULFATE PO SCH ×2 (09:30→21:05)
[2020-10-18] MEDS: LOVENOX INJ 30 MG SYR SC SCH ×2 (09:30→21:11)
[2020-10-18] MEDS: VITAMIN D3 125 mcg (5,000 UNITS) PO SCH (09:30)
[2020-10-18] MEDS: VITAMIN A PO SCH (09:30)
[2020-10-18] MEDS: PEPCID TAB 40 MG PO SCH ×2 (09:30→21:05)
[2020-10-18] MEDS: IVERMECTIN PO SCH (09:30)
[2020-10-18] MEDS: ASCORBIC ACID INJ MULTI-DOSE VIAL 1,500 MG in NS 50 ML IV 50 ML IV SCH ×4 (09:30→21:04)
[2020-10-18] MEDS: REMDESIVIR 100 MG in NS 250 ML IV 250 ML IV SCH (10:15)
--- NOTE | 2020-10-18 10:39 | PCM.PROG ---
Progress Note Progress Note for Day of Date of Exam: 10/18/20 Subjective Subjective: Pt is a 45 year old male past medical history of Hyperlipidemia admitted for COVID-19 pneumonia with hypoxia. This morning he is in bed eating breakfast. Reports feeling fatigue and short of breath with ambulation. Yesterday, pt had persistent headaches that were severe, CT head was obtained that revealed no acute intracranial findings. This morning pt reports headache has improved. He has not had any more fevers. Labs/imaging: Wbc 13.7, Hgb 13.1, Plt 303, Na 145, K 4.1, Creatinine 0.89, Glucose 178, CRP 70.5>31, Blood culture NGTD, CXR: No significant change in bilateral pneumonia. Current treatment course includes: IVF NS@75ml/h, Remdesivir, Solumedrol 80mg q8h, scheduled Bronchodilators, Antibiotics: Zosyn, Ivermectin, immune supporting supplements, supplemental O2, I/S, Respiratory therapy consult, Pneumonia protocol. He is currently requiring 6L nasal cannula supplemental oxygen, will titrate/wean as tolerated. Continue to closely monitor and follow up labs/imaging. Time spent on clinical assessment, reviewing labs and imaging, decision making, and documentation greater than 45 minutes. Past Medical Family Social History Past Med/Fam/Surg Hx: No changes since H&P Allergies: Allergies levofloxacin [From Levaquin] Adverse Reaction (Verified 10/16/20 09:37) Review of Systems ROS: No change since H&P Vital Signs and I&O's Vital Signs: Temperature 97.7 F Pulse Rate [Left Radial] 90 Pulse Rate 80 Respiratory Rate 18 Blood Pressure [Left Arm] 133/69 Blood Pressure [Right Arm] 125/68 Blood Pressure 122/67 O2 Sat by Pulse Oximetry 90 Intake and Output: Intake & Output 10/15/20 10/16/20 10/17/20 10/18/20 23:59 23:59 23:59 23:59 Intake Total 1935 / 1935 2452 / 2452 776 / 776 Output Total 525 / 525 3800 / 3800 Balance 1410 / 1410 -1348 / -1348 776 / 776 Physical Exam Oriented: Normal Eyes: Normal Ear: Normal Nose: Normal Throat: Normal Respiratory: Rales Cardiovascular: Normal : Normal Auscultation: Bowel Sounds: Normal Tenderness: Normal Skin: Normal Musculoskeletal: Normal Psychiatric: Normal Mood Description: Calm and Appropriate Affect: Normal Speech Pattern: Clear and Appropriate Laboratory and Diagnostics Result Diagrams: 10/18/20 05:25 10/18/20 05:25 Labs: 10/16/20 07:40 Blood Blood Culture - Preliminary 10/16/20 07:37 Blood Blood Culture - Preliminary Laboratory WBC 13.7 X10^3/uL (3.6-10.0) H D 10/18/20 05:25 RBC 4.51 X10^6/uL (4.7-6.0) L 10/18/20 05:25 Hgb 13.1 g/dL (13.5-18.0) L 10/18/20 05:25 Hct 38.9 % (42.0-54.0) L 10/18/20 05:25 MCV 86.4 fL (80.0-100.0) 10/18/20 05:25 MCH 29.1 pg (27.0-34.0) 10/18/20 05:25 MCHC 33.7 g/dL (33.0-35.0) 10/18/20 05:25 RDW 13.6 % (11.6-16.5) 10/18/20 05:25 Plt Count 303 X10^3/uL (150.0-450.0) 10/18/20 05:25 Plt Count Comment Adequate (ADEQUATE) 10/16/20 06:41 MPV 7.3 fL (7.4-11.0) L 10/18/20 05:25 Neut % (Auto) 90.0 % (42.0-75.0) H 10/18/20 05:25 Lymph % (Auto) 4.2 % (21.0-51.0) L 10/18/20 05:25 [place] % (Auto) 5.7 % (0.0-13.0) 10/18/20 05:25 Eos % (Auto) 0.0 % (0.9-2.9) L 10/18/20 05:25 Baso % (Auto) 0.1 % (0.2-1.0) L 10/18/20 05:25 Neut # (Auto) 12.3 x10^3/uL (2.2-4.8) H 10/18/20 05:25 Lymph # (Auto) 0.6 X10^3/uL (1.3-2.9) L 10/18/20 05:25 [place] # (Auto) 0.8 x10^3/uL (0.3-0.8) 10/18/20 05:25 Eos # (Auto) 0.0 x10^3/uL (0.0-0.2) 10/18/20 05:25 Baso # (Auto) 0.0 X10^3/uL (0.0-0.1) 10/18/20 05:25 Absolute Nucleated RBC 0.0 /100WBC 10/18/20 05:25 Plt Morphology Comment Normal (NORMAL) 10/16/20 06:41 RBC Morphology Normal (NORMAL) 10/16/20 06:41 D-Dimer 0.50 ug/ml (0.0-0.57) 10/16/20 06:41 Sample Site Rr 10/16/20 06:24 ABG pH 7.570 (7.35-7.45) H* 10/16/20 06:24 ABG pCO2 30.0 mmHg (35.0-45.0) L 10/16/20 06:24 ABG pO2 57.0 mmHg (80.0-100.0) L 10/16/20 06:24 ABG HCO3 27.5 mmol/L (22-26) H 10/16/20 06:24 ABG O2 Saturation 93.0 % (90-100) 10/16/20 06:24 ABG Base Excess 5.8 mmol/L (-2.0-2.0) H 10/16/20 06:24 Phillip Test Pos 10/16/20 06:24 A-a Gradient 55.0 mmHg 10/16/20 06:24 FiO2 21.0 10/16/20 06:24 Blood Gas Comments Fozia well sw 10/16/20 06:24 Sodium 145 mmol/L (136-145) 10/18/20 05:25 Corrected Sodium 147 mmol/L (136-145) H 10/18/20 05:25 Potassium 4.1 mmol/L (3.5-5.1) 10/18/20 05:25 Chloride 109 mmol/L (98-107) H 10/18/20 05:25 Carbon Dioxide 28.6 mmol/L (21-32) 10/18/20 05:25 BUN 12 mg/dL (7-18) 10/18/20 05:25 Creatinine 0.89 mg/dL (0.70-1.30) 10/18/20 05:25 Est GFR (MDRD) Af Amer > 60 (>60) 10/18/20 05:25 Est GFR (MDRD) Non-Af > 60 (>60) 10/18/20 05:25 Glucose 178 mg/dL (65-99) H 10/18/20 05:25 Lactic Acid 1.5 mmol/L (0.4-2.0) 10/16/20 07:37 Calcium 7.7 mg/dL (8.5-10.1) L 10/18/20 05:25 Corrected Calcium 9.0 mg/dL (8.5-10.1) 10/18/20 05:25 Ferritin 450 ng/mL (26-388) H 10/16/20 06:41 Total Bilirubin 0.20 mg/dL (0.2-1.0) 10/18/20 05:25 AST 31 Units/L (15-37) 10/18/20 05:25 ALT 22 Units/L (12-78) 10/18/20 05:25 Alkaline Phosphatase 45 Units/L (46-116) L 10/18/20 05:25 C-Reactive Protein 31.30 mg/L (0-3.0) H 10/18/20 05:25 B-Natriuretic Peptide 29.1 pg/mL (0-79) 10/16/20 06:41 Total Protein 6.3 g/dL (6.4-8.2) L 10/18/20 05:25 Albumin 2.4 g/dL (3.4-5.0) L 10/18/20 05:25 Globulin 3.9 g/dL (2.5-4.5) 10/18/20 05:25 Albumin/Globulin Ratio 0.6 Ratio (1.1-2.1) L 10/18/20 05:25 Specimen Type Random urine 10/16/20 15:03 Urine Color Yellow (YELLOW) 10/16/20 15:03 Urine Appearance Clear (CLEAR) 10/16/20 15:03 Urine pH 5.0 (5.0 - 8.0) 10/16/20 15:03 Ur Specific [place] 1.020 (1.000-1.030) 10/16/20 15:03 Urine Protein 2+ (NEGATIVE) 10/16/20 15:03 Urine Glucose (UA) Negative (NEGATIVE) 10/16/20 15:03 Urine Ketones Negative (NEGATIVE) 10/16/20 15:03 Urine Occult Blood 1+ (NEGATIVE) 10/16/20 15:03 Urine Nitrite Negative (NEGATIVE) 10/16/20 15:03 Urine Bilirubin Negative (NEGATIVE) 10/16/20 15:03 Urine Urobilinogen Normal (NORMAL) 10/16/20 15:03 Ur Leukocyte Esterase Negative (NEGATIVE) 10/16/20 15:03 Urine RBC 3-5 /HPF (0-3) A 10/16/20 15:03 Urine WBC 3-5 /HPF (0-5) 10/16/20 15:03 Ur Squamous Epith Cells Few /HPF (NEGATIVE) 10/16/20 15:03 Ur Transition Epith Cell Few /HPF (NEGATIVE) 10/16/20 15:03 Urine Bacteria Trace /HPF (NEGATIVE) 10/16/20 15:03 Hyaline Casts Few /LPF (NEGATIVE) 10/16/20 15:03 Fine Granular Casts Rare /LPF (NEGATIVE) 10/16/20 15:03 Urine Mucus Numerous /HPF (NEGATIVE) 10/16/20 15:03 Ur Culture Indicated? No/not indicated 10/16/20 15:03 SARS-CoV-2 (PCR) Positive (NEGATIVE) A 10/16/20 06:26 Influenza Type A (PCR) Negative (NEGATIVE) 10/16/20 06:26 Influenza Type B (PCR) Negative (NEGATIVE) 10/16/20 06:26 RSV (PCR) Negative (NEGATIVE) 10/16/20 06:26 Plan (1) Pneumonia due to COVID-19 virus: Status: Acute Plan: Per protocol.
[2020-10-18] MEDS ORDERED: SOLU-Medrol 40 MG VIAL ONE (13:14)
--- NOTE | 2020-10-18 13:34 | PCM.PROG ---
Progress Note - Progress Note for Day of Date of Exam: 10/17/20 - Subjective Subjective: WAS ADMITTED FOR TREATMENT OF PNEUMONIA DUE TO COVID-19, ACUTE RESPIRATORY FAILURE WITH HYPOXIA, DEHYDRATION, SYNCOPE, AND FALLS. HE REPORTS PMH OF PCI X 3 STENTS, CAD, HTN, HLD. TODAY, HE IS ALERT AND OREINTED, SITTING UP IN BED ON MORNING ROUNDS. HE REPORTS PERSISTENT COUGH AND SHORTNESS OF BREATH TODAY. HE HAS BEEN ON OXYGEN VIA NASAL CANNULA AT 2 LITERS/MINUTE. OXYGEN SATURATIONS HAVE REMAINED 93-100%. ON EXAMINATION, HEART IS REGULAR IN RATE AND RHYTHM. BILATERAL LUNGS NOTED WITH RALES THROUGHOUT. ABDOMEN IS ROUND, SOFT, AND NON-TENDER WITH NORMAL BOWEL SOUNDS NOTED IN ALL QUADRANTS. HIS VITALS THIS MORNING ARE: 97.7-76-18-94%-159/89. LABS WERE OBTAINED. ABNORMAL LAB VALUES INCLUDE THE FOLLOWING: WBC 3.2, RBC 3.63, HGB 11.1, HCT 32.7, PLT COUNT 521, CHLORIDE 108, GLUCOSE 121, CALCIUM 8.4, CRP 37.50, BNP 870, TOTAL PROTEIN 8.7, ALBUMIN 2.4, GLOBULIN 6.3. BLOOD CULTURES PENDING. CHEST XRAY REVEALED: Mildly worse appearance of basilar predominant airspace and interstitial opacities compared to radiograph from 09/03/2020. This may represent sequela of COVID 19 pneumonia. WE WILL CONTINUE WITH REMDESIVIR, RESPIRATORY TX, NEB TX, ANTIBIOTICS, SOLU-MEDROL, AND CURRENT PLAN OF CARE TODAY. OTHERWISE, WE PLAN TO FOLLOW UP WITH AM LABS AND CHEST XRAY AND CONTINUE TO MONITOR. TIME SPENT ON CLINICAL ASSESSMENT, REVIEWING LABS AND IMAGING, DECISION MAKING, AND DOCUMEN TATION GREATER THAN 45 MINUTES. - Past Medical Family Social History Past Med/Fam/Surg Hx: No changes since H&P Allergies: Allergies levofloxacin [From Levaquin] Adverse Reaction (Verified 10/16/20 09:37) - Review of Systems ROS: No change since H&P - Vital Signs and I&O's Vital Signs: Temperature 98.7 F Pulse Rate [Left Radial] 82 Pulse Rate 86 Respiratory Rate 20 Blood Pressure [Left Arm] 129/74 Blood Pressure [Right Arm] 125/68 Blood Pressure 122/67 O2 Sat by Pulse Oximetry 90 Intake and Output: Intake & Output 10/16/20 10/17/20 10/18/2011/21 11:59 11:59 11:59 11:59 Intake Total 2229 / 2229 2934 / 2934 Output Total 3225 / 3225 1100 / 1100 Balance -996 / -996 1834 / 1834 - Physical Exam Oriented: Normal Eyes: Normal Ear: Normal Nose: Normal Throat: Normal Respiratory: Rales Cardiovascular: Normal : Normal Auscultation: Bowel Sounds: Normal Tenderness: Normal Skin: Normal Musculoskeletal: Normal Psychiatric: Normal Mood Description: Calm, Appropriate Affect: Normal Speech Pattern: Clear, Appropriate - Laboratory and Diagnostics Result Diagrams: 10/18/20 05:25 10/18/20 05:25 Labs: 10/16/20 07:40 Blood Blood Culture - Preliminary 10/16/20 07:37 Blood Blood Culture - Preliminary Laboratory WBC 13.7 X10^3/uL (3.6-10.0) H D 10/18/20 05:25 RBC 4.51 X10^6/uL (4.7-6.0) L 10/18/20 05:25 Hgb 13.1 g/dL (13.5-18.0) L 10/18/20 05:25 Hct 38.9 % (42.0-54.0) L 10/18/20 05:25 MCV 86.4 fL (80.0-100.0) 10/18/20 05:25 MCH 29.1 pg (27.0-34.0) 10/18/20 05:25 MCHC 33.7 g/dL (33.0-35.0) 10/18/20 05:25 RDW 13.6 % (11.6-16.5) 10/18/20 05:25 Plt Count 303 X10^3/uL (150.0-450.0) 10/18/20 05:25 Plt Count Comment Adequate (ADEQUATE) 10/16/20 06:41 MPV 7.3 fL (7.4-11.0) L 10/18/20 05:25 Neut % (Auto) 90.0 % (42.0-75.0) H 10/18/20 05:25 Lymph % (Auto) 4.2 % (21.0-51.0) L 10/18/20 05:25 [place] % (Auto) 5.7 % (0.0-13.0) 10/18/20 05:25 Eos % (Auto) 0.0 % (0.9-2.9) L 10/18/20 05:25 Baso % (Auto) 0.1 % (0.2-1.0) L 10/18/20 05:25 Neut # (Auto) 12.3 x10^3/uL (2.2-4.8) H 10/18/20 05:25 Lymph # (Auto) 0.6 X10^3/uL (1.3-2.9) L 10/18/20 05:25 [place] # (Auto) 0.8 x10^3/uL (0.3-0.8) 10/18/20 05:25 Eos # (Auto) 0.0 x10^3/uL (0.0-0.2) 10/18/20 05:25 Baso # (Auto) 0.0 X10^3/uL (0.0-0.1) 10/18/20 05:25 Absolute Nucleated RBC 0.0 /100WBC 10/18/20 05:25 Plt Morphology Comment Normal (NORMAL) 10/16/20 06:41 RBC Morphology Normal (NORMAL) 10/16/20 06:41 D-Dimer 0.50 ug/ml (0.0-0.57) 10/16/20 06:41 Sample Site Rr 10/16/20 06:24 ABG pH 7.570 (7.35-7.45) H* 10/16/20 06:24 ABG pCO2 30.0 mmHg (35.0-45.0) L 10/16/20 06:24 ABG pO2 57.0 mmHg (80.0-100.0) L 10/16/20 06:24 ABG HCO3 27.5 mmol/L (22-26) H 10/16/20 06:24 ABG O2 Saturation 93.0 % (90-100) 10/16/20 06:24 ABG Base Excess 5.8 mmol/L (-2.0-2.0) H 10/16/20 06:24 Phillip Test Pos 10/16/20 06:24 A-a Gradient 55.0 mmHg 10/16/20 06:24 FiO2 21.0 10/16/20 06:24 Blood Gas Comments [place] well 10/16/20 06:24 Sodium 145 mmol/L (136-145) 10/18/20 05:25 Corrected Sodium 147 mmol/L (136-145) H 10/18/20 05:25 Potassium 4.1 mmol/L (3.5-5.1) 10/18/20 05:25 Chloride 109 mmol/L (98-107) H 10/18/20 05:25 Carbon Dioxide 28.6 mmol/L (21-32) 10/18/20 05:25 BUN 12 mg/dL (7-18) 10/18/20 05:25 Creatinine 0.89 mg/dL (0.70-1.30) 10/18/20 05:25 Est GFR (MDRD) Af Amer > 60 (>60) 10/18/20 05:25 Est GFR (MDRD) Non-Af > 60 (>60) 10/18/20 05:25 Glucose 178 mg/dL (65-99) H 10/18/20 05:25 Lactic Acid 1.5 mmol/L (0.4-2.0) 10/16/20 07:37 Calcium 7.7 mg/dL (8.5-10.1) L 10/18/20 05:25 Corrected Calcium 9.0 mg/dL (8.5-10.1) 10/18/20 05:25 Ferritin 450 ng/mL (26-388) H 10/16/20 06:41 Total Bilirubin 0.20 mg/dL (0.2-1.0) 10/18/20 05:25 AST 31 Units/L (15-37) 10/18/20 05:25 ALT 22 Units/L (12-78) 10/18/20 05:25 Alkaline Phosphatase 45 Units/L (46-116) L 10/18/20 05:25 C-Reactive Protein 31.30 mg/L (0-3.0) H 10/18/20 05:25 B-Natriuretic Peptide 29.1 pg/mL (0-79) 10/16/20 06:41 Total Protein 6.3 g/dL (6.4-8.2) L 10/18/20 05:25 Albumin 2.4 g/dL (3.4-5.0) L 10/18/20 05:25 Globulin 3.9 g/dL (2.5-4.5) 10/18/20 05:25 Albumin/Globulin Ratio 0.6 Ratio (1.1-2.1) L 10/18/20 05:25 Specimen Type Random urine 10/16/20 15:03 Urine Color Yellow (YELLOW) 10/16/20 15:03 Urine Appearance Clear (CLEAR) 10/16/20 15:03 Urine pH 5.0 (5.0 - 8.0) 10/16/20 15:03 Ur Specific [place] 1.020 (1.000-1.030) 10/16/20 15:03 Urine Protein 2+ (NEGATIVE) 10/16/20 15:03 Urine Glucose (UA) Negative (NEGATIVE) 10/16/20 15:03 Urine Ketones Negative (NEGATIVE) 10/16/20 15:03 Urine Occult Blood 1+ (NEGATIVE) 10/16/20 15:03 Urine Nitrite Negative (NEGATIVE) 10/16/20 15:03 Urine Bilirubin Negative (NEGATIVE) 10/16/20 15:03 Urine Urobilinogen Normal (NORMAL) 10/16/20 15:03 Ur Leukocyte Esterase Negative (NEGATIVE) 10/16/20 15:03 Urine RBC 3-5 /HPF (0-3) A 10/16/20 15:03 Urine WBC 3-5 /HPF (0-5) 10/16/20 15:03 Ur Squamous Epith Cells Few /HPF (NEGATIVE) 10/16/20 15:03 Ur Transition Epith Cell Few /HPF (NEGATIVE) 10/16/20 15:03 Urine Bacteria Trace /HPF (NEGATIVE) 10/16/20 15:03 Hyaline Casts Few /LPF (NEGATIVE) 10/16/20 15:03 Fine Granular Casts Rare /LPF (NEGATIVE) 10/16/20 15:03 Urine Mucus Numerous /HPF (NEGATIVE) 10/16/20 15:03 Ur Culture Indicated? No/not indicated 10/16/20 15:03 SARS-CoV-2 (PCR) Positive (NEGATIVE) A 10/16/20 06:26 Influenza Type A (PCR) Negative (NEGATIVE) 10/16/20 06:26 Influenza Type B (PCR) Negative (NEGATIVE) 10/16/20 06:26 RSV (PCR) Negative (NEGATIVE) 10/16/20 06:26
[2020-10-18] MEDS: NS 1000 ML 1,000 ML IV SCH ×2 (16:36)
[2020-10-18] MEDS: TUSSIONEX PENNKINETIC SUSP PO PRN (21:06)
[2020-10-19] MEDS: NS 1000 ML 1,000 ML IV SCH ×3 (01:21→15:44)
[2020-10-19] MEDS: ASCORBIC ACID INJ MULTI-DOSE VIAL 1,500 MG in NS 50 ML IV 50 ML IV SCH ×4 (02:09→21:46)
[2020-10-19] MEDS: SOLU-Medrol 40 MG VIAL IVP SCH ×3 (05:09→21:47)
[2020-10-19] MEDS: ZOSYN VIAL 3.375 GRAMS 3.375 G in NS 100 ML IV + SPIKE MINIBAG* 100 ML IV SCH ×3 (05:10→21:46)
--- NOTE | 2020-10-19 05:34 | RAD ---
PROCEDURE: Chest X-ray 1 View .HISTORY: Follow-up pneumonia.TECHNIQUE: AP view .COMPARISON: 10/18/2020.TECHNICAL QUALITY: Satisfactory .FINDINGS:Unremarkable cardio mediastinal silhouette.Bilateral pneumonia similar to previous study allowing for technical differences with no pleural fluid or pneumothorax.IMPRESSION:Unchanged bilateral pneumonia.Electronically signed by: Reymundo Cade (Oct 19, 2020 05:32:12)
[2020-10-19 06:16] LABS: BASOPHILS % (AUTO) 0.1 % (0.2-1.0); HEMATOCRIT 36.9 % (42.0-54.0); HEMOGLOBIN 12.5 g/dL (13.5-18.0); LYMPHOCYTES # (AUTO) 0.4 X10^3/uL (1.3-2.9); LYMPHOCYTES % (AUTO) 2.8 % (21.0-51.0); MEAN CORPUSCULAR HEMOGLOBIN 29.1 pg (27.0-34.0); MEAN CORPUSCULAR VOLUME 85.6 fL (80.0-100.0); MEAN PLATELET VOLUME 7.4 fL (7.4-11.0); MONOCYTES # (AUTO) 0.8 x10^3/uL (0.3-0.8); MONOCYTES % (AUTO) 5.2 % (0.0-13.0); NEUTROPHILS # (AUTO) 14.3 x10^3/uL (2.2-4.8); NEUTROPHILS % (AUTO) 91.9 % (42.0-75.0); PLATELET COUNT 314 X10^3/uL (150.0-450.0); RED BLOOD COUNT 4.31 X10^6/uL (4.7-6.0); RED CELL DISTRIBUTION WIDTH 13.8 % (11.6-16.5); WHITE BLOOD COUNT 15.6 X10^3/uL (3.6-10.0)
[2020-10-19 06:42] LABS: ALANINE AMINOTRANSFERASE 19 Units/L (12-78); ALBUMIN 2.2 g/dL (3.4-5.0); ALKALINE PHOSPHATASE 45 Units/L (46-116); ASPARTATE AMINO TRANSFERASE 30 Units/L (15-37); BLOOD UREA NITROGEN 12 mg/dL (7-18); CALCIUM 7.4 mg/dL (8.5-10.1); CARBON DIOXIDE 29.9 mmol/L (21-32); CHLORIDE 108 mmol/L (98-107); COR CA(FOR HYPOALB) 8.8 mg/dL (8.5-10.1); COR NA(FOR HYPERGLY) 147 mmol/L (136-145); CREATININE 0.85 mg/dL (0.70-1.30); SODIUM 145 mmol/L (136-145); TOTAL PROTEIN 5.9 g/dL (6.4-8.2); eGFR NON BLACK RACES > 60 (>60)
[2020-10-19 08:14] LABS: BAND NEUTROPHILS % 1 % (0-10); PLATELET MORPHOLOGY COMMENT NORMAL (NORMAL)
[2020-10-19] MEDS: REMDESIVIR 100 MG in NS 250 ML IV 250 ML IV SCH (08:27)
[2020-10-19] MEDS: PEPCID TAB 40 MG PO SCH ×2 (08:27→21:47)
[2020-10-19] MEDS: VITAMIN A PO SCH (08:27)
[2020-10-19] MEDS: IVERMECTIN PO SCH (08:27)
[2020-10-19] MEDS: LOVENOX INJ 30 MG SYR SC SCH ×2 (08:27→21:47)
[2020-10-19] MEDS: VITAMIN D3 125 mcg (5,000 UNITS) PO SCH (08:28)
[2020-10-19] MEDS: ZINC SULFATE PO SCH ×2 (08:28→21:47)
[2020-10-19] MEDS: PULMICORT NEB TX 0.5 MG NEB SCH ×2 (08:52→22:00)
[2020-10-19] MEDS: BROVANA IN SCH ×2 (08:52→22:00)
--- NOTE | 2020-10-19 12:28 | PCM.PROG ---
Progress Note Progress Note for Day of Date of Exam: 10/19/20 Subjective Subjective: Pt is a 45 year old male past medical history of Hyperlipidemia admitted for COVID-19 pneumonia with hypoxia. This morning he reports feeling significant shortness of breath. He has been using his incentive spirometer. Early this morning he took off his nasal cannula to use the bathroom and desatted into the 60s when nurse placed him on heated high flow to bring up his O2 saturations back to 90%. He is now requiring heated high flow oxygen with FiO2 66%. He is coughing up sputum. Labs/imaging: Wbc 15.6, Hgb 12.5, Plt 314, Na 145, K 3.9, Creatinine 0.85, Glucose 181, CRP 31>20, Blood culture NGTD, CXR: No significant change in bilateral pneumonia. Current treatment course includes: IVF NS@75ml/h, Remdesivir, Solumedrol 80mg q8h, scheduled Bronchodilators, Antibiotics: Zosyn, Ivermectin, immune supporting supplements, supplemental O2, I/S, Respiratory therapy consult, Pneumonia protocol. Titrate/wean as tolerated heated high flow as tolerated. Actemra 400mg x1 dose ordered, pharmacy awaiting supply shipment, will give as soon as arrival. Continue to closely monitor and follow up labs/imaging. Time spent on clinical assessment, reviewing labs and imaging, decision making, and documentation greater than 45 minutes. Past Medical Family Social History Past Med/Fam/Surg Hx: No changes since H&P Allergies: Allergies levofloxacin [From Levaquin] Adverse Reaction (Verified 10/16/20 09:37) Review of Systems ROS: No change since H&P Vital Signs and I&O's Vital Signs: Temperature 97.6 F Pulse Rate [Left Radial] 90 Pulse Rate 80 Respiratory Rate 20 Blood Pressure [Left Arm] 135/71 Blood Pressure [Right Arm] 125/68 Blood Pressure 122/67 O2 Sat by Pulse Oximetry 87 Intake and Output: Intake & Output 10/16/20 10/17/20 10/18/20 10/19/20 23:59 23:59 23:59 23:59 Intake Total 1935 / 1935 2452 / 2452 4660 / 4660 639 / 639 Output Total 525 / 525 3800 / 3800 Balance 1410 / 1410 -1348 / -1348 4660 / 4660 639 / 639 Physical Exam Oriented: Normal Eyes: Normal Ear: Normal Nose: Normal Throat: Normal Respiratory: Diminished and [place]ales Cardiovascular: Normal : Normal Auscultation: Bowel Sounds: Normal Tenderness: Normal Skin: Normal Musculoskeletal: Normal Psychiatric: Normal Mood Description: Calm and Appropriate Affect: Normal Speech Pattern: Clear and Appropriate Laboratory and Diagnostics Result Diagrams: 10/19/20 04:06 10/19/20 04:06 Labs: 10/16/20 07:40 Blood Blood Culture - Preliminary 10/16/20 07:37 Blood Blood Culture - Preliminary Laboratory WBC 15.6 X10^3/uL (3.6-10.0) H 10/19/20 04:06 RBC 4.31 X10^6/uL (4.7-6.0) L 10/19/20 04:06 Hgb 12.5 g/dL (13.5-18.0) L 10/19/20 04:06 Hct 36.9 % (42.0-54.0) L 10/19/20 04:06 MCV 85.6 fL (80.0-100.0) 10/19/20 04:06 MCH 29.1 pg (27.0-34.0) 10/19/20 04:06 MCHC 34.0 g/dL (33.0-35.0) 10/19/20 04:06 RDW 13.8 % (11.6-16.5) 10/19/20 04:06 Plt Count 314 X10^3/uL (150.0-450.0) 10/19/20 04:06 Plt Count Comment Adequate (ADEQUATE) 10/19/20 04:06 MPV 7.4 fL (7.4-11.0) 10/19/20 04:06 Neut % (Auto) 91.9 % (42.0-75.0) H 10/19/20 04:06 Lymph % (Auto) 2.8 % (21.0-51.0) L 10/19/20 04:06 [place] % (Auto) 5.2 % (0.0-13.0) 10/19/20 04:06 Eos % (Auto) 0.0 % (0.9-2.9) L 10/19/20 04:06 Baso % (Auto) 0.1 % (0.2-1.0) L 10/19/20 04:06 Neut # (Auto) 14.3 x10^3/uL (2.2-4.8) H 10/19/20 04:06 Lymph # (Auto) 0.4 X10^3/uL (1.3-2.9) L 10/19/20 04:06 [place] # (Auto) 0.8 x10^3/uL (0.3-0.8) 10/19/20 04:06 Eos # (Auto) 0.0 x10^3/uL (0.0-0.2) 10/19/20 04:06 Baso # (Auto) 0.0 X10^3/uL (0.0-0.1) 10/19/20 04:06 Absolute Nucleated RBC 0.1 /100WBC 10/19/20 04:06 Total Counted 100 10/19/20 04:06 Neutrophils % (Manual) 93 % (39-76) H 10/19/20 04:06 Band Neutrophils % 1 % (0-10) 10/19/20 04:06 Lymphocytes % (Manual) 2 % (13-43) L 10/19/20 04:06 Monocytes % (Manual) 4 % (4-9) 10/19/20 04:06 Plt Morphology Comment Normal (NORMAL) 10/19/20 04:06 RBC Morphology Normal (NORMAL) 10/19/20 04:06 D-Dimer 0.50 ug/ml (0.0-0.57) 10/16/20 06:41 Sample Site Rr 10/16/20 06:24 ABG pH 7.570 (7.35-7.45) H* 10/16/20 06:24 ABG pCO2 30.0 mmHg (35.0-45.0) L 10/16/20 06:24 ABG pO2 57.0 mmHg (80.0-100.0) L 10/16/20 06:24 ABG HCO3 27.5 mmol/L (22-26) H 10/16/20 06:24 ABG O2 Saturation 93.0 % (90-100) 10/16/20 06:24 ABG Base Excess 5.8 mmol/L (-2.0-2.0) H 10/16/20 06:24 Phillip Test Pos 10/16/20 06:24 A-a Gradient 55.0 mmHg 10/16/20 06:24 FiO2 21.0 10/16/20 06:24 Blood Gas Comments [place]oz[place] well sw 10/16/20 06:24 Sodium 145 mmol/L (136-145) 10/19/20 04:06 Corrected Sodium 147 mmol/L (136-145) H 10/19/20 04:06 Potassium 3.9 mmol/L (3.5-5.1) 10/19/20 04:06 Chloride 108 mmol/L (98-107) H 10/19/20 04:06 Carbon Dioxide 29.9 mmol/L (21-32) 10/19/20 04:06 BUN 12 mg/dL (7-18) 10/19/20 04:06 Creatinine 0.85 mg/dL (0.70-1.30) 10/19/20 04:06 Est GFR (MDRD) Af Amer > 60 (>60) 10/19/20 04:06 Est GFR (MDRD) Non-Af > 60 (>60) 10/19/20 04:06 Glucose 181 mg/dL (65-99) H 10/19/20 04:06 Lactic Acid 1.5 mmol/L (0.4-2.0) 10/16/20 07:37 Calcium 7.4 mg/dL (8.5-10.1) L 10/19/20 04:06 Corrected Calcium 8.8 mg/dL (8.5-10.1) 10/19/20 04:06 Ferritin 450 ng/mL (26-388) H 10/16/20 06:41 Total Bilirubin 0.20 mg/dL (0.2-1.0) 10/19/20 04:06 AST 30 Units/L (15-37) 10/19/20 04:06 ALT 19 Units/L (12-78) 10/19/20 04:06 Alkaline Phosphatase 45 Units/L (46-116) L 10/19/20 04:06 C-Reactive Protein 20.80 mg/L (0-3.0) H 10/19/20 04:06 B-Natriuretic Peptide 29.1 pg/mL (0-79) 10/16/20 06:41 Total Protein 5.9 g/dL (6.4-8.2) L 10/19/20 04:06 Albumin 2.2 g/dL (3.4-5.0) L 10/19/20 04:06 Globulin 3.7 g/dL (2.5-4.5) 10/19/20 04:06 Albumin/Globulin Ratio 0.6 Ratio (1.1-2.1) L 10/19/20 04:06 Specimen Type Random urine 10/16/20 15:03 Urine Color Yellow (YELLOW) 10/16/20 15:03 Urine Appearance Clear (CLEAR) 10/16/20 15:03 Urine pH 5.0 (5.0 - 8.0) 10/16/20 15:03 Ur Specific [place] 1.020 (1.000-1.030) 10/16/20 15:03 Urine Protein 2+ (NEGATIVE) 10/16/20 15:03 Urine Glucose (UA) Negative (NEGATIVE) 10/16/20 15:03 Urine Ketones Negative (NEGATIVE) 10/16/20 15:03 Urine Occult Blood 1+ (NEGATIVE) 10/16/20 15:03 Urine Nitrite Negative (NEGATIVE) 10/16/20 15:03 Urine Bilirubin Negative (NEGATIVE) 10/16/20 15:03 Urine Urobilinogen Normal (NORMAL) 10/16/20 15:03 Ur Leukocyte Esterase Negative (NEGATIVE) 10/16/20 15:03 Urine RBC 3-5 /HPF (0-3) A 10/16/20 15:03 Urine WBC 3-5 /HPF (0-5) 10/16/20 15:03 Ur Squamous Epith Cells Few /HPF (NEGATIVE) 10/16/20 15:03 Ur Transition Epith Cell Few /HPF (NEGATIVE) 10/16/20 15:03 Urine Bacteria Trace /HPF (NEGATIVE) 10/16/20 15:03 Hyaline Casts Few /LPF (NEGATIVE) 10/16/20 15:03 Fine Granular Casts Rare /LPF (NEGATIVE) 10/16/20 15:03 Urine Mucus Numerous /HPF (NEGATIVE) 10/16/20 15:03 Ur Culture Indicated? No/not indicated 10/16/20 15:03 SARS-CoV-2 (PCR) Positive (NEGATIVE) A 10/16/20 06:26 Influenza Type A (PCR) Negative (NEGATIVE) 10/16/20 06:26 Influenza Type B (PCR) Negative (NEGATIVE) 10/16/20 06:26 RSV (PCR) Negative (NEGATIVE) 10/16/20 06:26 Plan (1) Pneumonia due to COVID-19 virus: Status: Acute Plan: Per protocol.
[2020-10-19] MEDS ORDERED: ACTEMRA 400 MG in NS 100 ML IV 80 ML IV SCH (13:41)
[2020-10-19] MEDS: TUSSIONEX PENNKINETIC SUSP PO PRN (21:48)
[2020-10-19] MEDS: RESTORIL CAP 15 MG PO PRN (21:48)
[2020-10-20] MEDS: ASCORBIC ACID INJ MULTI-DOSE VIAL 1,500 MG in NS 50 ML IV 50 ML IV SCH ×4 (02:42→21:38)
[2020-10-20] MEDS: NS 1000 ML 1,000 ML IV SCH ×2 (02:42→17:17)
[2020-10-20] MEDS: ZOSYN VIAL 3.375 GRAMS 3.375 G in NS 100 ML IV + SPIKE MINIBAG* 100 ML IV SCH ×3 (05:07→21:37)
[2020-10-20] MEDS: SOLU-Medrol 40 MG VIAL IVP SCH (05:07)
[2020-10-20 06:16] LABS: ALANINE AMINOTRANSFERASE 19 Units/L (12-78); ALKALINE PHOSPHATASE 41 Units/L (46-116); ASPARTATE AMINO TRANSFERASE 31 Units/L (15-37); BASOPHILS % (AUTO) 0.1 % (0.2-1.0); BLOOD UREA NITROGEN 15 mg/dL (7-18); CALCIUM 7.6 mg/dL (8.5-10.1); CARBON DIOXIDE 30.4 mmol/L (21-32); CHLORIDE 110 mmol/L (98-107); COR CA(FOR HYPOALB) 9.2 mg/dL (8.5-10.1); COR NA(FOR HYPERGLY) 147 mmol/L (136-145); CREATININE 0.82 mg/dL (0.70-1.30); HEMATOCRIT 36.6 % (42.0-54.0); HEMOGLOBIN 12.5 g/dL (13.5-18.0); LYMPHOCYTES # (AUTO) 0.3 X10^3/uL (1.3-2.9); MEAN CORPUSCULAR HEMOGLOBIN 29.3 pg (27.0-34.0); MEAN CORPUSCULAR HGB CONC 34.2 g/dL (33.0-35.0); MEAN CORPUSCULAR VOLUME 85.9 fL (80.0-100.0); MEAN PLATELET VOLUME 7.2 fL (7.4-11.0); MONOCYTES # (AUTO) 0.8 x10^3/uL (0.3-0.8); MONOCYTES % (AUTO) 4.6 % (0.0-13.0); NEUTROPHILS # (AUTO) 16.1 x10^3/uL (2.2-4.8); NEUTROPHILS % (AUTO) 93.3 % (42.0-75.0); PLATELET COUNT 324 X10^3/uL (150.0-450.0); RED BLOOD COUNT 4.27 X10^6/uL (4.7-6.0); RED CELL DISTRIBUTION WIDTH 13.6 % (11.6-16.5); SODIUM 146 mmol/L (136-145); TOTAL PROTEIN 5.5 g/dL (6.4-8.2); WHITE BLOOD COUNT 17.3 X10^3/uL (3.6-10.0); eGFR NON BLACK RACES > 60 (>60)
--- NOTE | 2020-10-20 06:52 | RAD ---
HISTORYPNEUMONIA F/USTUDYCHEST, 1 VIEWCOMPARISONOne day prior.TECHNIQUEAP view of the chestFINDINGSCardiac and mediastinal contours are within normal limits. No significant change in bilateral airspace and interstitial opacities worst in the left mid to lower lung. No definite pleural effusion or pneumothorax.IMPRESSIONNo significant change.Electronically signed by: Darrick Cagle (Oct 20, 2020 06:49:31)
[2020-10-20 07:05] LABS: BAND NEUTROPHILS % 3 % (0-10); PLATELET MORPHOLOGY COMMENT NORMAL (NORMAL)
[2020-10-20] MEDS ORDERED: ATIVAN TAB 0.5 MG PO PRN (08:26)
[2020-10-20] MEDS ORDERED: MORPHINE SULFATE INJ 2 MG INJ IVP PRN (08:27)
[2020-10-20] MEDS: PEPCID TAB 40 MG PO SCH ×2 (08:32→21:36)
[2020-10-20] MEDS: IVERMECTIN PO SCH (08:32)
[2020-10-20] MEDS: LOVENOX INJ 30 MG SYR SC SCH ×2 (08:33→21:37)
[2020-10-20] MEDS: ZINC SULFATE PO SCH ×2 (08:33→21:36)
[2020-10-20] MEDS: VITAMIN A PO SCH (08:34)
[2020-10-20] MEDS: VITAMIN D3 125 mcg (5,000 UNITS) PO SCH (08:34)
[2020-10-20] MEDS: REMDESIVIR 100 MG in NS 250 ML IV 250 ML IV SCH (08:35)
[2020-10-20] MEDS: BROVANA IN SCH ×2 (09:25→20:45)
[2020-10-20] MEDS: PULMICORT NEB TX 0.5 MG NEB SCH ×2 (09:25→20:45)
[2020-10-20] MEDS ORDERED: ASCORBIC ACID INJ MULTI-DOSE VIAL 1,500 MG in NS 50 ML IV 50 ML IV SCH (12:19)
--- NOTE | 2020-10-20 12:24 | PCM.PROG ---
Progress Note Progress Note for Day of Date of Exam: 10/20/20 Subjective Subjective: Pt is a 45 year old male past medical history of Hyperlipidemia admitted for COVID-19 pneumonia with hypoxia. This morning patient continues to have worsening shortness of breath. He is currently requiring heated high flow oxygen with FiO2 having to be increased to 94%. He is coughing up sputum. Labs/imaging: Wbc 17.3, Hgb 12.5, Plt 324, Na 146, K 4.0, Creatinine 0.82, Glucose 155, CRP 24, Blood culture NGTD, CXR: No significant change in bilateral pneumonia. Current treatment course includes: IVF NS@KVO ml/h, Remdesivir, Solumedrol 80mg q8h, scheduled Bronchodilators, Antibiotics: Zosyn, Ivermectin, immune supporting supplements, supplemental O2, I/S, Respiratory therapy consult, Pneumonia protocol. Titrate/wean as tolerated heated high flow as tolerated. Actemra 400mg x1 dose ordered, pharmacy awaiting supply shipment, will administer as soon as arrival. Increase Solumedrol to 125mg TID, add azithromycin. Ativan prn and IV morphine prn added for anxiety and air hunger. Continue to closely monitor and follow up labs/imaging. Time spent on clinical assessment, reviewing labs and imaging, decision making, and documentation greater than 45 minutes. Past Medical Family Social History Past Med/Fam/Surg Hx: No changes since H&P Allergies: Allergies levofloxacin [From Levaquin] Adverse Reaction (Verified 10/16/20 09:37) Review of Systems ROS: No change since H&P Vital Signs and I&O's Vital Signs: Temperature 98.1 F Pulse Rate [Left Radial] 69 Pulse Rate 80 Respiratory Rate 20 Blood Pressure [Left Arm] 138/67 Blood Pressure [Right Arm] 125/68 Blood Pressure 122/67 O2 Sat by Pulse Oximetry 94 Intake and Output: Intake & Output 10/17/20 10/18/20 10/19/20 10/20/20 23:59 23:59 23:59 23:59 Intake Total 2452 / 2452 4660 / 4660 2239 / 2239 0 / 0 Output Total 3800 / 3800 800 / 800 500 / 500 Balance -1348 / -1348 4660 / 4660 1439 / 1439 -500 / -500 Physical Exam Oriented: Normal Eyes: Normal Ear: Normal Nose: Normal Throat: Normal Respiratory: Diminished and Rales Cardiovascular: Normal : Normal Auscultation: Bowel Sounds: Normal Tenderness: Normal Skin: Normal Musculoskeletal: Normal Psychiatric: Normal Mood Description: Calm, Anxious and Appropriate Affect: Anxious Speech Pattern: Clear and Appropriate Laboratory and Diagnostics Result Diagrams: 10/20/20 05:24 10/20/20 05:24 Labs: 10/16/20 07:40 Blood Blood Culture - Preliminary 10/16/20 07:37 Blood Blood Culture - Preliminary Laboratory WBC 17.3 X10^3/uL (3.6-10.0) H 10/20/20 05:24 RBC 4.27 X10^6/uL (4.7-6.0) L 10/20/20 05:24 Hgb 12.5 g/dL (13.5-18.0) L 10/20/20 05:24 Hct 36.6 % (42.0-54.0) L 10/20/20 05:24 MCV 85.9 fL (80.0-100.0) 10/20/20 05:24 MCH 29.3 pg (27.0-34.0) 10/20/20 05:24 MCHC 34.2 g/dL (33.0-35.0) 10/20/20 05:24 RDW 13.6 % (11.6-16.5) 10/20/20 05:24 Plt Count 324 X10^3/uL (150.0-450.0) 10/20/20 05:24 Plt Count Comment Adequate (ADEQUATE) 10/20/20 05:24 MPV 7.2 fL (7.4-11.0) L 10/20/20 05:24 Neut % (Auto) 93.3 % (42.0-75.0) H 10/20/20 05:24 Lymph % (Auto) 2.0 % (21.0-51.0) L 10/20/20 05:24 [place] % (Auto) 4.6 % (0.0-13.0) 10/20/20 05:24 Eos % (Auto) 0.0 % (0.9-2.9) L 10/20/20 05:24 Baso % (Auto) 0.1 % (0.2-1.0) L 10/20/20 05:24 Neut # (Auto) 16.1 x10^3/uL (2.2-4.8) H 10/20/20 05:24 Lymph # (Auto) 0.3 X10^3/uL (1.3-2.9) L 10/20/20 05:24 [place] # (Auto) 0.8 x10^3/uL (0.3-0.8) 10/20/20 05:24 Eos # (Auto) 0.0 x10^3/uL (0.0-0.2) 10/20/20 05:24 Baso # (Auto) 0.0 X10^3/uL (0.0-0.1) 10/20/20 05:24 Absolute Nucleated RBC 0.0 /100WBC 10/20/20 05:24 Total Counted 100 10/20/20 05:24 Neutrophils % (Manual) 91 % (39-76) H 10/20/20 05:24 Band Neutrophils % 3 % (0-10) 10/20/20 05:24 Lymphocytes % (Manual) 3 % (13-43) L 10/20/20 05:24 Monocytes % (Manual) 3 % (4-9) L 10/20/20 05:24 Plt Morphology Comment Normal (NORMAL) 10/20/20 05:24 RBC Morphology Normal (NORMAL) 10/20/20 05:24 D-Dimer 0.40 ug/ml (0.0-0.57) 10/19/20 12:39 Sample Site Rr 10/16/20 06:24 ABG pH 7.570 (7.35-7.45) H* 10/16/20 06:24 ABG pCO2 30.0 mmHg (35.0-45.0) L 10/16/20 06:24 ABG pO2 57.0 mmHg (80.0-100.0) L 10/16/20 06:24 ABG HCO3 27.5 mmol/L (22-26) H 10/16/20 06:24 ABG O2 Saturation 93.0 % (90-100) 10/16/20 06:24 ABG Base Excess 5.8 mmol/L (-2.0-2.0) H 10/16/20 06:24 Phillip Test Pos 10/16/20 06:24 A-a Gradient 55.0 mmHg 10/16/20 06:24 FiO2 21.0 10/16/20 06:24 Blood Gas Comments Fozia well sw 10/16/20 06:24 Sodium 146 mmol/L (136-145) H 10/20/20 05:24 Corrected Sodium 147 mmol/L (136-145) H 10/20/20 05:24 Potassium 4.0 mmol/L (3.5-5.1) 10/20/20 05:24 Chloride 110 mmol/L (98-107) H 10/20/20 05:24 Carbon Dioxide 30.4 mmol/L (21-32) 10/20/20 05:24 BUN 15 mg/dL (7-18) 10/20/20 05:24 Creatinine 0.82 mg/dL (0.70-1.30) 10/20/20 05:24 Est GFR (MDRD) Af Amer > 60 (>60) 10/20/20 05:24 Est GFR (MDRD) Non-Af > 60 (>60) 10/20/20 05:24 Glucose 155 mg/dL (65-99) H 10/20/20 05:24 Lactic Acid 1.5 mmol/L (0.4-2.0) 10/16/20 07:37 Calcium 7.6 mg/dL (8.5-10.1) L 10/20/20 05:24 Corrected Calcium 9.2 mg/dL (8.5-10.1) 10/20/20 05:24 Ferritin 450 ng/mL (26-388) H 10/16/20 06:41 Total Bilirubin 0.30 mg/dL (0.2-1.0) 10/20/20 05:24 AST 31 Units/L (15-37) 10/20/20 05:24 ALT 19 Units/L (12-78) 10/20/20 05:24 Alkaline Phosphatase 41 Units/L (46-116) L 10/20/20 05:24 C-Reactive Protein 24.00 mg/L (0-3.0) H 10/20/20 05:24 B-Natriuretic Peptide 29.1 pg/mL (0-79) 10/16/20 06:41 Total Protein 5.5 g/dL (6.4-8.2) L 10/20/20 05:24 Albumin 2.0 g/dL (3.4-5.0) L 10/20/20 05:24 Globulin 3.5 g/dL (2.5-4.5) 10/20/20 05:24 Albumin/Globulin Ratio 0.6 Ratio (1.1-2.1) L 10/20/20 05:24 Specimen Type Random urine 10/16/20 15:03 Urine Color Yellow (YELLOW) 10/16/20 15:03 Urine Appearance Clear (CLEAR) 10/16/20 15:03 Urine pH 5.0 (5.0 - 8.0) 10/16/20 15:03 Ur Specific [place] 1.020 (1.000-1.030) 10/16/20 15:03 Urine Protein 2+ (NEGATIVE) 10/16/20 15:03 Urine Glucose (UA) Negative (NEGATIVE) 10/16/20 15:03 Urine Ketones Negative (NEGATIVE) 10/16/20 15:03 Urine Occult Blood 1+ (NEGATIVE) 10/16/20 15:03 Urine Nitrite Negative (NEGATIVE) 10/16/20 15:03 Urine Bilirubin Negative (NEGATIVE) 10/16/20 15:03 Urine Urobilinogen Normal (NORMAL) 10/16/20 15:03 Ur Leukocyte Esterase Negative (NEGATIVE) 10/16/20 15:03 Urine RBC 3-5 /HPF (0-3) A 10/16/20 15:03 Urine WBC 3-5 /HPF (0-5) 10/16/20 15:03 Ur Squamous Epith Cells Few /HPF (NEGATIVE) 10/16/20 15:03 Ur Transition Epith Cell Few /HPF (NEGATIVE) 10/16/20 15:03 Urine Bacteria Trace /HPF (NEGATIVE) 10/16/20 15:03 Hyaline Casts Few /LPF (NEGATIVE) 10/16/20 15:03 Fine Granular Casts Rare /LPF (NEGATIVE) 10/16/20 15:03 Urine Mucus Numerous /HPF (NEGATIVE) 10/16/20 15:03 Ur Culture Indicated? No/not indicated 10/16/20 15:03 SARS-CoV-2 (PCR) Positive (NEGATIVE) A 10/16/20 06:26 Influenza Type A (PCR) Negative (NEGATIVE) 10/16/20 06:26 Influenza Type B (PCR) Negative (NEGATIVE) 10/16/20 06:26 RSV (PCR) Negative (NEGATIVE) 10/16/20 06:26 Plan (1) Pneumonia due to COVID-19 virus: Status: Acute Plan: Per protocol.
[2020-10-20] MEDS: SOLU-Medrol 125 MG VIAL IVP SCH ×2 (13:37→21:38)
[2020-10-20] MEDS: ZITHROMAX INJ 500 MG VIAL 500 MG in NS 250 ML IV 250 ML IV SCH (13:37)
[2020-10-20] MEDS: ATIVAN TAB 0.5 MG PO SCH (21:36)
[2020-10-21] MEDS: NS 1000 ML 1,000 ML IV SCH ×3 (05:05→17:56)
[2020-10-21] MEDS: ASCORBIC ACID INJ MULTI-DOSE VIAL 1,500 MG in NS 50 ML IV 50 ML IV SCH ×3 (05:21→22:11)
[2020-10-21 05:23] LABS: BASOPHILS % (AUTO) 0 % (0.2-1.0); HEMATOCRIT 35.8 % (42.0-54.0); HEMOGLOBIN 12.4 g/dL (13.5-18.0); LYMPHOCYTES # (AUTO) 0.3 X10^3/uL (1.3-2.9); LYMPHOCYTES % (AUTO) 2.3 % (21.0-51.0); MEAN CORPUSCULAR HEMOGLOBIN 29.5 pg (27.0-34.0); MEAN CORPUSCULAR HGB CONC 34.7 g/dL (33.0-35.0); MEAN CORPUSCULAR VOLUME 85.1 fL (80.0-100.0); MEAN PLATELET VOLUME 7.2 fL (7.4-11.0); MONOCYTES # (AUTO) 0.6 x10^3/uL (0.3-0.8); MONOCYTES % (AUTO) 4.5 % (0.0-13.0); NEUTROPHILS # (AUTO) 13.3 x10^3/uL (2.2-4.8); NEUTROPHILS % (AUTO) 93.2 % (42.0-75.0); PLATELET COUNT 332 X10^3/uL (150.0-450.0); RED BLOOD COUNT 4.21 X10^6/uL (4.7-6.0); RED CELL DISTRIBUTION WIDTH 13.4 % (11.6-16.5); WHITE BLOOD COUNT 14.2 X10^3/uL (3.6-10.0)
[2020-10-21] MEDS: SOLU-Medrol 125 MG VIAL IVP SCH ×3 (05:23→22:11)
[2020-10-21] MEDS: ZOSYN VIAL 3.375 GRAMS 3.375 G in NS 100 ML IV + SPIKE MINIBAG* 100 ML IV SCH ×3 (05:30→22:11)
--- NOTE | 2020-10-21 05:39 | RAD ---
PROCEDURE: Chest X-ray 1 View .HISTORY: Follow-up pneumonia.TECHNIQUE: AP view .COMPARISON: 10/20/2020.TECHNICAL QUALITY: Satisfactory .FINDINGS:Unremarkable cardio mediastinal silhouette.Normal central vascularity.Some improvement in the pneumonia left midlung field and unchanged left base and right midlung field with no pleural fluid or pneumothorax.IMPRESSION:Some improvement in the pneumonia on the left and unchanged on the right.Electronically signed by: Reymundo Cade (Oct 21, 2020 05:37:12)
[2020-10-21 06:17] LABS: PLATELET MORPHOLOGY COMMENT NORMAL (NORMAL)
[2020-10-21 06:21] LABS: ALANINE AMINOTRANSFERASE 21 Units/L (12-78); ALBUMIN 1.8 g/dL (3.4-5.0); ALKALINE PHOSPHATASE 43 Units/L (46-116); ASPARTATE AMINO TRANSFERASE 33 Units/L (15-37); BLOOD UREA NITROGEN 15 mg/dL (7-18); CALCIUM 7.4 mg/dL (8.5-10.1); CARBON DIOXIDE 30.2 mmol/L (21-32); CHLORIDE 104 mmol/L (98-107); COR CA(FOR HYPOALB) 9.2 mg/dL (8.5-10.1); COR NA(FOR HYPERGLY) 142 mmol/L (136-145); CREATININE 0.79 mg/dL (0.70-1.30); SODIUM 140 mmol/L (136-145); TOTAL PROTEIN 5.5 g/dL (6.4-8.2); eGFR NON BLACK RACES > 60 (>60)
[2020-10-21 08:26] LABS: ABG BASE EXCESS 7.5 mmol/L (-2.0-2.0); ABG HCO3 31.1 mmol/L (22-26)
[2020-10-21] MEDS: BROVANA IN SCH ×2 (08:37→21:45)
[2020-10-21] MEDS: PULMICORT NEB TX 0.5 MG NEB SCH ×2 (08:37→21:45)
[2020-10-21] MEDS: ATIVAN TAB 0.5 MG PO SCH ×2 (09:45→20:38)
[2020-10-21] MEDS: LOVENOX INJ 30 MG SYR SC SCH ×2 (09:45→20:38)
[2020-10-21] MEDS: VITAMIN D3 125 mcg (5,000 UNITS) PO SCH (09:45)
[2020-10-21] MEDS: ZITHROMAX INJ 500 MG VIAL 500 MG in NS 250 ML IV 250 ML IV SCH (09:45)
[2020-10-21] MEDS: PEPCID TAB 40 MG PO SCH ×2 (09:45→20:39)
[2020-10-21] MEDS: VITAMIN A PO SCH (09:45)
[2020-10-21] MEDS: ZINC SULFATE PO SCH ×2 (09:45→20:39)
[2020-10-21] MEDS ORDERED: LASIX PO ONE (10:09)
--- NOTE | 2020-10-21 10:15 | PCM.PROG ---
Progress Note Progress Note for Day of Date of Exam: 10/21/20 Subjective Subjective: Pt is a 45 year old male past medical history of Hyperlipidemia admitted for COVID-19 pneumonia with hypoxia. Patient sitting up on side of bed. He continues to have shortness of breath and fatigue. He is currently requiring heated high flow oxygen with FiO2 93%. Labs/imaging: Wbc 14.2, Hgb 12.4, Plt 332, Na 140, K 3.8, Creatinine 0.79, Glucose 184, CRP 24>35, Blood culture NGTD, CXR: Some improvement in the pneumonia on the left and unchanged on the right. Current treatment course includes: IVF NS@KVO ml/h, Remdesivir, Solumedrol 125mg q8h, scheduled Bronchodilators, Antibiotics: Azithromycin, Zosyn, Ivermectin, Ativan prn, IV morphine prn, immune supporting supplements, supplemental O2, I/S, Respiratory therapy consult, SSI, Pneumonia protocol. Titrate/wean as tolerated heated high flow as tolerated. Actemra 400mg x1 dose ordered, pharmacy awaiting supply shipment, will administer as soon as arrival. Pt has minimal 1+ bilateral pedal edema, will order low dose lasix 20mg PO x 1. Will have patient in prone position different times of the day to improve oxygenation. Currently on high dose steroids, will need to taper or reduce dose when appropriate. Continue to closely monitor and follow up labs/imaging. Time spent on clinical assessment, reviewing labs and imaging, decision making, and documentation greater than 45 minutes. Past Medical Family Social History Past Med/Fam/Surg Hx: No changes since H&P Allergies: Allergies levofloxacin [From Levaquin] Adverse Reaction (Verified 10/16/20 09:37) Review of Systems ROS: No change since H&P Vital Signs and I&O's Vital Signs: Temperature 99.8 F Pulse Rate [Left Radial] 71 Pulse Rate 78 Respiratory Rate 30 Blood Pressure [Left Arm] 125/60 Blood Pressure [Right Arm] 125/68 Blood Pressure 122/67 O2 Sat by Pulse Oximetry 88 Intake and Output: Intake & Output 10/18/20 10/19/20 10/20/20 10/21/20 23:59 23:59 23:59 23:59 Intake Total 4660 / 4660 2239 / 2239 2087 / 2087 768 / 768 Output Total 800 / 800 1700 / 1700 425 / 425 Balance 4660 / 4660 1439 / 1439 387 / 387 343 / 343 Physical Exam Oriented: Normal Eyes: Normal Ear: Normal Nose: Normal Throat: Normal Respiratory: Diminished and Rales Cardiovascular: Normal : Normal Auscultation: Bowel Sounds: Normal Tenderness: Normal Skin: Normal Musculoskeletal: Normal Psychiatric: Normal Mood Description: Calm, Anxious and Appropriate Affect: Anxious Speech Pattern: Clear and Appropriate Laboratory and Diagnostics Result Diagrams: 10/21/20 04:35 10/21/20 04:35 Labs: 10/16/20 07:40 Blood Blood Culture - Final 10/16/20 07:37 Blood Blood Culture - Final Laboratory WBC 14.2 X10^3/uL (3.6-10.0) H 10/21/20 04:35 RBC 4.21 X10^6/uL (4.7-6.0) L 10/21/20 04:35 Hgb 12.4 g/dL (13.5-18.0) L 10/21/20 04:35 Hct 35.8 % (42.0-54.0) L 10/21/20 04:35 MCV 85.1 fL (80.0-100.0) 10/21/20 04:35 MCH 29.5 pg (27.0-34.0) 10/21/20 04:35 MCHC 34.7 g/dL (33.0-35.0) 10/21/20 04:35 RDW 13.4 % (11.6-16.5) 10/21/20 04:35 Plt Count 332 X10^3/uL (150.0-450.0) 10/21/20 04:35 Plt Count Comment Adequate (ADEQUATE) 10/21/20 04:35 MPV 7.2 fL (7.4-11.0) L 10/21/20 04:35 Neut % (Auto) 93.2 % (42.0-75.0) H 10/21/20 04:35 Lymph % (Auto) 2.3 % (21.0-51.0) L 10/21/20 04:35 [place] % (Auto) 4.5 % (0.0-13.0) 10/21/20 04:35 Eos % (Auto) 0.0 % (0.9-2.9) L 10/21/20 04:35 Baso % (Auto) 0 % (0.2-1.0) L 10/21/20 04:35 Neut # (Auto) 13.3 x10^3/uL (2.2-4.8) H 10/21/20 04:35 Lymph # (Auto) 0.3 X10^3/uL (1.3-2.9) L 10/21/20 04:35 [place] # (Auto) 0.6 x10^3/uL (0.3-0.8) 10/21/20 04:35 Eos # (Auto) 0.0 x10^3/uL (0.0-0.2) 10/21/20 04:35 Baso # (Auto) 0.0 X10^3/uL (0.0-0.1) 10/21/20 04:35 Absolute Nucleated RBC 0.0 /100WBC 10/21/20 04:35 Total Counted 100 10/21/20 04:35 Neutrophils % (Manual) 97 % (39-76) H 10/21/20 04:35 Band Neutrophils % 3 % (0-10) 10/20/20 05:24 Lymphocytes % (Manual) 1 % (13-43) L 10/21/20 04:35 Monocytes % (Manual) 2 % (4-9) L 10/21/20 04:35 Plt Morphology Comment Normal (NORMAL) 10/21/20 04:35 RBC Morphology Normal (NORMAL) 10/21/20 04:35 D-Dimer 0.40 ug/ml (0.0-0.57) 10/19/20 12:39 Sample Site Right brachial 10/21/20 08:20 ABG pH 7.510 (7.35-7.45) H 10/21/20 08:20 ABG pCO2 39.0 mmHg (35.0-45.0) 10/21/20 08:20 ABG pO2 70.0 mmHg (80.0-100.0) L 10/21/20 08:20 ABG HCO3 31.1 mmol/L (22-26) H* 10/21/20 08:20 ABG O2 Saturation 95.0 % (90-100) 10/21/20 08:20 ABG Base Excess 7.5 mmol/L (-2.0-2.0) H 10/21/20 08:20 Phillip Test Na 10/21/20 08:20 A-a Gradient 530.0 mmHg 10/21/20 08:20 FiO2 91.0 10/21/20 08:20 Blood Gas Comments Fozia well aw 10/21/20 08:20 Sodium 140 mmol/L (136-145) 10/21/20 04:35 Corrected Sodium 142 mmol/L (136-145) 10/21/20 04:35 Potassium 3.8 mmol/L (3.5-5.1) 10/21/20 04:35 Chloride 104 mmol/L (98-107) 10/21/20 04:35 Carbon Dioxide 30.2 mmol/L (21-32) 10/21/20 04:35 BUN 15 mg/dL (7-18) 10/21/20 04:35 Creatinine 0.79 mg/dL (0.70-1.30) 10/21/20 04:35 Est GFR (MDRD) Af Amer > 60 (>60) 10/21/20 04:35 Est GFR (MDRD) Non-Af > 60 (>60) 10/21/20 04:35 Glucose 184 mg/dL (65-99) H 10/21/20 04:35 POC Glucose (mg/dL) 158 mg/dL (65-99) H 10/21/20 05:17 Lactic Acid 1.5 mmol/L (0.4-2.0) 10/16/20 07:37 Calcium 7.4 mg/dL (8.5-10.1) L 10/21/20 04:35 Corrected Calcium 9.2 mg/dL (8.5-10.1) 10/21/20 04:35 Ferritin 450 ng/mL (26-388) H 10/16/20 06:41 Total Bilirubin 0.30 mg/dL (0.2-1.0) 10/21/20 04:35 AST 33 Units/L (15-37) 10/21/20 04:35 ALT 21 Units/L (12-78) 10/21/20 04:35 Alkaline Phosphatase 43 Units/L (46-116) L 10/21/20 04:35 C-Reactive Protein 35.20 mg/L (0-3.0) H 10/21/20 04:35 B-Natriuretic Peptide 29.1 pg/mL (0-79) 10/16/20 06:41 Total Protein 5.5 g/dL (6.4-8.2) L 10/21/20 04:35 Albumin 1.8 g/dL (3.4-5.0) L 10/21/20 04:35 Globulin 3.7 g/dL (2.5-4.5) 10/21/20 04:35 Albumin/Globulin Ratio 0.5 Ratio (1.1-2.1) L 10/21/20 04:35 Specimen Type Random urine 10/16/20 15:03 Urine Color Yellow (YELLOW) 10/16/20 15:03 Urine Appearance Clear (CLEAR) 10/16/20 15:03 Urine pH 5.0 (5.0 - 8.0) 10/16/20 15:03 Ur Specific [place] 1.020 (1.000-1.030) 10/16/20 15:03 Urine Protein 2+ (NEGATIVE) 10/16/20 15:03 Urine Glucose (UA) Negative (NEGATIVE) 10/16/20 15:03 Urine Ketones Negative (NEGATIVE) 10/16/20 15:03 Urine Occult Blood 1+ (NEGATIVE) 10/16/20 15:03 Urine Nitrite Negative (NEGATIVE) 10/16/20 15:03 Urine Bilirubin Negative (NEGATIVE) 10/16/20 15:03 Urine Urobilinogen Normal (NORMAL) 10/16/20 15:03 Ur Leukocyte Esterase Negative (NEGATIVE) 10/16/20 15:03 Urine RBC 3-5 /HPF (0-3) A 10/16/20 15:03 Urine WBC 3-5 /HPF (0-5) 10/16/20 15:03 Ur Squamous Epith Cells Few /HPF (NEGATIVE) 10/16/20 15:03 Ur Transition Epith Cell Few /HPF (NEGATIVE) 10/16/20 15:03 Urine Bacteria Trace /HPF (NEGATIVE) 10/16/20 15:03 Hyaline Casts Few /LPF (NEGATIVE) 10/16/20 15:03 Fine Granular Casts Rare /LPF (NEGATIVE) 10/16/20 15:03 Urine Mucus Numerous /HPF (NEGATIVE) 10/16/20 15:03 Ur Culture Indicated? No/not indicated 10/16/20 15:03 SARS-CoV-2 (PCR) Positive (NEGATIVE) A 10/16/20 06:26 Influenza Type A (PCR) Negative (NEGATIVE) 10/16/20 06:26 Influenza Type B (PCR) Negative (NEGATIVE) 10/16/20 06:26 RSV (PCR) Negative (NEGATIVE) 10/16/20 06:26 Plan (1) Pneumonia due to COVID-19 virus: Status: Acute Plan: Per protocol.
[2020-10-21] MEDS ORDERED: LASIX ONE (13:13)
[2020-10-21] MEDS: RESTORIL CAP 15 MG PO PRN (20:40)
[2020-10-21] MEDS: TUSSIONEX PENNKINETIC SUSP PO PRN (20:40)
[2020-10-22] MEDS: NS 1000 ML 1,000 ML IV SCH ×3 (02:38→16:10)
[2020-10-22] MEDS: ASCORBIC ACID INJ MULTI-DOSE VIAL 1,500 MG in NS 50 ML IV 50 ML IV SCH ×3 (05:17→22:00)
[2020-10-22] MEDS: SOLU-Medrol 125 MG VIAL IVP SCH ×3 (05:18→22:00)
[2020-10-22] MEDS: ZOSYN VIAL 3.375 GRAMS 3.375 G in NS 100 ML IV + SPIKE MINIBAG* 100 ML IV SCH ×3 (05:18→22:00)
[2020-10-22 05:43] LABS: BASOPHILS % (AUTO) 0.1 % (0.2-1.0); HEMATOCRIT 39.2 % (42.0-54.0); HEMOGLOBIN 13.2 g/dL (13.5-18.0); LYMPHOCYTES # (AUTO) 0.4 X10^3/uL (1.3-2.9); LYMPHOCYTES % (AUTO) 2.9 % (21.0-51.0); MEAN CORPUSCULAR HEMOGLOBIN 29.1 pg (27.0-34.0); MEAN CORPUSCULAR HGB CONC 33.7 g/dL (33.0-35.0); MEAN CORPUSCULAR VOLUME 86.4 fL (80.0-100.0); MEAN PLATELET VOLUME 7.3 fL (7.4-11.0); MONOCYTES # (AUTO) 0.6 x10^3/uL (0.3-0.8); MONOCYTES % (AUTO) 4.7 % (0.0-13.0); NEUTROPHILS # (AUTO) 11.4 x10^3/uL (2.2-4.8); NEUTROPHILS % (AUTO) 92.3 % (42.0-75.0); PLATELET COUNT 367 X10^3/uL (150.0-450.0); RED BLOOD COUNT 4.54 X10^6/uL (4.7-6.0); RED CELL DISTRIBUTION WIDTH 13.5 % (11.6-16.5); WHITE BLOOD COUNT 12.3 X10^3/uL (3.6-10.0)
[2020-10-22 05:58] LABS: ALANINE AMINOTRANSFERASE 26 Units/L (12-78); ALKALINE PHOSPHATASE 49 Units/L (46-116); ASPARTATE AMINO TRANSFERASE 30 Units/L (15-37); BLOOD UREA NITROGEN 17 mg/dL (7-18); CALCIUM 7.7 mg/dL (8.5-10.1); CHLORIDE 104 mmol/L (98-107); COR CA(FOR HYPOALB) 9.3 mg/dL (8.5-10.1); COR NA(FOR HYPERGLY) 144 mmol/L (136-145); CREATININE 0.81 mg/dL (0.70-1.30); SODIUM 142 mmol/L (136-145); eGFR NON BLACK RACES > 60 (>60)
[2020-10-22 06:04] LABS: PLATELET MORPHOLOGY COMMENT NORMAL (NORMAL)
[2020-10-22] MEDS: ZITHROMAX INJ 500 MG VIAL 500 MG in NS 250 ML IV 250 ML IV SCH (08:09)
[2020-10-22] MEDS: LOVENOX INJ 30 MG SYR SC SCH (08:11)
[2020-10-22] MEDS: ATIVAN TAB 0.5 MG PO SCH ×2 (08:11→20:54)
[2020-10-22] MEDS: PEPCID TAB 40 MG PO SCH ×2 (08:12→20:57)
[2020-10-22] MEDS: VITAMIN A PO SCH (08:12)
[2020-10-22] MEDS: ZINC SULFATE PO SCH ×2 (08:13→20:58)
[2020-10-22] MEDS: VITAMIN D3 125 mcg (5,000 UNITS) PO SCH (08:13)
[2020-10-22] MEDS: TUSSIONEX PENNKINETIC SUSP PO PRN ×2 (08:35→21:00)
[2020-10-22] MEDS: BROVANA IN SCH ×2 (09:00→21:57)
[2020-10-22] MEDS: PULMICORT NEB TX 0.5 MG NEB SCH ×2 (09:00→21:57)
--- NOTE | 2020-10-22 11:12 | RAD ---
HISTORYCOVID PNEUMONIA Relevant Clinical InformationSTUDYCHEST, 1 VIEWCOMPARISONAugust 2020FINDINGSThe patient is rotated. The cardiac silhouette is enlarged. Bilateral airspace opacities are again noted most pronounced within the perihilar regions [id number]. The infiltrate appears to have progressed/worsened on the left when compared to prior exam.IMPRESSIONBilateral airspace disease left greater than right which appears to have progressed/worsened since prior exam as noted above. Correlate clinically.Electronically signed by: DOMINIK MCCARTNEY (Oct 22, 2020 11:10:17)
[2020-10-22] MEDS ORDERED: PHARMACY CONSULT - IVERMECTIN XX SCH (12:00)
[2020-10-22] MEDS: CYTOTEC PO SCH ×3 (13:55→20:55)
[2020-10-22] MEDS: FLUVOXAMINE MALEATE PO SCH ×2 (13:55→20:55)
[2020-10-22] MEDS: PROTONIX INJ 40 MG VIAL IVP SCH ×2 (13:55→20:58)
[2020-10-22] MEDS: MELATONIN PO SCH (20:56)
[2020-10-22] MEDS: LOVENOX INJ 60 MG SYR SC SCH (20:56)
[2020-10-23] MEDS: NS 1000 ML 1,000 ML IV SCH ×3 (05:15→16:47)
[2020-10-23 05:17] LABS: BASOPHILS % (AUTO) 0.2 % (0.2-1.0); HEMATOCRIT 35.9 % (42.0-54.0); HEMOGLOBIN 12.3 g/dL (13.5-18.0); LYMPHOCYTES # (AUTO) 0.2 X10^3/uL (1.3-2.9); LYMPHOCYTES % (AUTO) 1.6 % (21.0-51.0); MEAN CORPUSCULAR HEMOGLOBIN 29.1 pg (27.0-34.0); MEAN CORPUSCULAR HGB CONC 34.2 g/dL (33.0-35.0); MEAN CORPUSCULAR VOLUME 85.2 fL (80.0-100.0); MEAN PLATELET VOLUME 7.4 fL (7.4-11.0); MONOCYTES # (AUTO) 0.6 x10^3/uL (0.3-0.8); MONOCYTES % (AUTO) 5.6 % (0.0-13.0); NEUTROPHILS # (AUTO) 10.5 x10^3/uL (2.2-4.8); NEUTROPHILS % (AUTO) 92.6 % (42.0-75.0); PLATELET COUNT 355 X10^3/uL (150.0-450.0); RED BLOOD COUNT 4.21 X10^6/uL (4.7-6.0); RED CELL DISTRIBUTION WIDTH 13.6 % (11.6-16.5); WHITE BLOOD COUNT 11.4 X10^3/uL (3.6-10.0)
[2020-10-23] MEDS: ASCORBIC ACID INJ MULTI-DOSE VIAL 1,500 MG in NS 50 ML IV 50 ML IV SCH ×3 (05:21→21:39)
[2020-10-23] MEDS: SOLU-Medrol 125 MG VIAL IVP SCH ×3 (05:21→21:40)
[2020-10-23] MEDS: ZOSYN VIAL 3.375 GRAMS 3.375 G in NS 100 ML IV + SPIKE MINIBAG* 100 ML IV SCH ×3 (05:22→21:40)
[2020-10-23 05:34] LABS: ASPARTATE AMINO TRANSFERASE 28 Units/L (15-37); BLOOD UREA NITROGEN 20 mg/dL (7-18); CALCIUM 7.5 mg/dL (8.5-10.1); CHLORIDE 104 mmol/L (98-107); COR NA(FOR HYPERGLY) 142 mmol/L (136-145); CREATININE 0.75 mg/dL (0.70-1.30); SODIUM 140 mmol/L (136-145); eGFR NON BLACK RACES > 60 (>60)
[2020-10-23 05:35] LABS: ALANINE AMINOTRANSFERASE 24 Units/L (12-78); ALBUMIN 1.8 g/dL (3.4-5.0); ALKALINE PHOSPHATASE 46 Units/L (46-116); COR CA(FOR HYPOALB) 9.3 mg/dL (8.5-10.1); TOTAL PROTEIN 5.4 g/dL (6.4-8.2)
[2020-10-23 05:53] LABS: BAND NEUTROPHILS % 1 % (0-10); PLATELET MORPHOLOGY COMMENT NORMAL (NORMAL)
[2020-10-23] MEDS ORDERED: IVERMECTIN ONE (08:21)
[2020-10-23] MEDS: PULMICORT NEB TX 0.5 MG NEB SCH ×2 (09:00→20:30)
[2020-10-23] MEDS: BROVANA IN SCH ×2 (09:00→20:30)
[2020-10-23] MEDS: VITAMIN D3 125 mcg (5,000 UNITS) PO SCH (10:23)
[2020-10-23] MEDS: ZINC SULFATE PO SCH ×2 (10:23→20:40)
[2020-10-23] MEDS: FLUVOXAMINE MALEATE PO SCH ×2 (10:23→20:37)
[2020-10-23] MEDS: CYTOTEC PO SCH ×4 (10:24→20:38)
[2020-10-23] MEDS: PROTONIX INJ 40 MG VIAL IVP SCH ×2 (10:24→20:40)
[2020-10-23] MEDS: VITAMIN A PO SCH (10:25)
[2020-10-23] MEDS: PEPCID TAB 40 MG PO SCH ×2 (10:25→20:39)
[2020-10-23] MEDS: ATIVAN TAB 0.5 MG PO SCH ×2 (10:25→20:38)
[2020-10-23] MEDS: IVERMECTIN PO SCH (12:39)
[2020-10-23] MEDS: ZITHROMAX INJ 500 MG VIAL 500 MG in NS 250 ML IV 250 ML IV SCH (14:00)
[2020-10-23] MEDS: LOVENOX INJ 60 MG SYR SC SCH ×2 (15:35→20:38)
[2020-10-23] MEDS: MELATONIN PO SCH (20:38)
[2020-10-24] MEDS: NS 1000 ML 1,000 ML IV SCH ×3 (00:27→17:14)
[2020-10-24] MEDS: ASCORBIC ACID INJ MULTI-DOSE VIAL 1,500 MG in NS 50 ML IV 50 ML IV SCH ×3 (05:09→21:37)
[2020-10-24] MEDS: SOLU-Medrol 125 MG VIAL IVP SCH ×3 (05:26→21:37)
[2020-10-24] MEDS: ZOSYN VIAL 3.375 GRAMS 3.375 G in NS 100 ML IV + SPIKE MINIBAG* 100 ML IV SCH ×3 (05:26→21:35)
[2020-10-24 05:28] LABS: BLOOD UREA NITROGEN 19 mg/dL (7-18); CALCIUM 7.5 mg/dL (8.5-10.1); CARBON DIOXIDE 31.8 mmol/L (21-32); CHLORIDE 103 mmol/L (98-107); COR NA(FOR HYPERGLY) 143 mmol/L (136-145); CREATININE 0.82 mg/dL (0.70-1.30); SODIUM 141 mmol/L (136-145); eGFR NON BLACK RACES > 60 (>60)
[2020-10-24 05:29] LABS: BASOPHILS % (AUTO) 0.1 % (0.2-1.0); HEMATOCRIT 35.6 % (42.0-54.0); HEMOGLOBIN 12.5 g/dL (13.5-18.0); LYMPHOCYTES # (AUTO) 0.2 X10^3/uL (1.3-2.9); LYMPHOCYTES % (AUTO) 1.7 % (21.0-51.0); MEAN CORPUSCULAR HEMOGLOBIN 29.7 pg (27.0-34.0); MEAN CORPUSCULAR HGB CONC 35.2 g/dL (33.0-35.0); MEAN CORPUSCULAR VOLUME 84.3 fL (80.0-100.0); MEAN PLATELET VOLUME 7.8 fL (7.4-11.0); MONOCYTES # (AUTO) 0.5 x10^3/uL (0.3-0.8); MONOCYTES % (AUTO) 5.1 % (0.0-13.0); NEUTROPHILS % (AUTO) 93.1 % (42.0-75.0); PLATELET COUNT 292 X10^3/uL (150.0-450.0); RED BLOOD COUNT 4.22 X10^6/uL (4.7-6.0); RED CELL DISTRIBUTION WIDTH 13.2 % (11.6-16.5); WHITE BLOOD COUNT 9.7 X10^3/uL (3.6-10.0)
[2020-10-24 06:18] LABS: PLATELET MORPHOLOGY COMMENT NORMAL (NORMAL)
[2020-10-24] MEDS: PULMICORT NEB TX 0.5 MG NEB SCH ×2 (09:00→21:00)
[2020-10-24] MEDS: BROVANA IN SCH ×2 (09:00→21:00)
[2020-10-24 09:02] VITALS: BMI 24.8
--- NOTE | 2020-10-24 10:00 | RAD ---
HISTORYCOVID PNEUMONIASTUDYCHEST, 1 [id number]/14/2021.TECHNIQUEAP view of the chestFINDINGSCardiac and mediastinal contours are within normal limits. No significant change in bilateral airspace opacities. This appears worse in the left midlung. No definite pleural effusion or pneumothorax.IMPRESSIONNo significant change. Bilateral airspace opacities consistent with COVID 19 pneumoniaElectronically signed by: Darrick Cagle (Oct 24, 2020 09:58:41)
[2020-10-24] MEDS: ATIVAN TAB 0.5 MG PO SCH ×2 (10:13→21:37)
[2020-10-24] MEDS: FLUVOXAMINE MALEATE PO SCH ×2 (10:13→21:37)
[2020-10-24] MEDS: CYTOTEC PO SCH ×4 (10:13→21:36)
[2020-10-24] MEDS: LOVENOX INJ 60 MG SYR SC SCH ×2 (10:14→21:35)
[2020-10-24] MEDS: PEPCID TAB 40 MG PO SCH ×2 (10:15→21:37)
[2020-10-24] MEDS: ZINC SULFATE PO SCH ×2 (10:15→21:37)
[2020-10-24] MEDS: VITAMIN D3 125 mcg (5,000 UNITS) PO SCH (10:15)
[2020-10-24] MEDS: PROTONIX INJ 40 MG VIAL IVP SCH ×2 (10:15→21:35)
[2020-10-24] MEDS: VITAMIN A PO SCH (10:15)
[2020-10-24] MEDS: ZITHROMAX INJ 500 MG VIAL 500 MG in NS 250 ML IV 250 ML IV SCH (10:16)
[2020-10-24] MEDS ORDERED: NS 50 ML IV 50 ML IV ONE (10:26)
[2020-10-24] MEDS: IVERMECTIN PO SCH (10:30)
[2020-10-24] MEDS: MELATONIN PO SCH (21:35)
[2020-10-25] MEDS: NS 1000 ML 1,000 ML IV SCH ×3 (05:01→17:08)
[2020-10-25] MEDS: SOLU-Medrol 125 MG VIAL IVP SCH ×4 (05:02→22:51)
[2020-10-25] MEDS: ASCORBIC ACID INJ MULTI-DOSE VIAL 1,500 MG in NS 50 ML IV 50 ML IV SCH ×3 (05:02→22:51)
[2020-10-25] MEDS: ZOSYN VIAL 3.375 GRAMS 3.375 G in NS 100 ML IV + SPIKE MINIBAG* 100 ML IV SCH ×3 (05:02→22:51)
[2020-10-25 05:05] LABS: BASOPHILS % (AUTO) 0.2 % (0.2-1.0); HEMATOCRIT 36.2 % (42.0-54.0); HEMOGLOBIN 12.6 g/dL (13.5-18.0); LYMPHOCYTES # (AUTO) 0.1 X10^3/uL (1.3-2.9); LYMPHOCYTES % (AUTO) 1.3 % (21.0-51.0); MEAN CORPUSCULAR HEMOGLOBIN 29.5 pg (27.0-34.0); MEAN CORPUSCULAR HGB CONC 34.8 g/dL (33.0-35.0); MEAN CORPUSCULAR VOLUME 84.9 fL (80.0-100.0); MEAN PLATELET VOLUME 7.6 fL (7.4-11.0); MONOCYTES # (AUTO) 0.4 x10^3/uL (0.3-0.8); MONOCYTES % (AUTO) 3.9 % (0.0-13.0); NEUTROPHILS # (AUTO) 10.3 x10^3/uL (2.2-4.8); NEUTROPHILS % (AUTO) 94.6 % (42.0-75.0); PLATELET COUNT 298 X10^3/uL (150.0-450.0); RED BLOOD COUNT 4.26 X10^6/uL (4.7-6.0); RED CELL DISTRIBUTION WIDTH 13.2 % (11.6-16.5); WHITE BLOOD COUNT 10.8 X10^3/uL (3.6-10.0)
[2020-10-25 05:06] LABS: BLOOD UREA NITROGEN 19 mg/dL (7-18); CALCIUM 7.4 mg/dL (8.5-10.1); CHLORIDE 104 mmol/L (98-107); COR NA(FOR HYPERGLY) 141 mmol/L (136-145); CREATININE 0.71 mg/dL (0.70-1.30); SODIUM 140 mmol/L (136-145); eGFR NON BLACK RACES > 60 (>60)
[2020-10-25 05:26] LABS: PLATELET MORPHOLOGY COMMENT NORMAL (NORMAL)
[2020-10-25] MEDS: MORPHINE SULFATE INJ 2 MG INJ IVP PRN (06:19)
[2020-10-25] MEDS ORDERED: VALIUM PO PRN (08:57)
[2020-10-25] MEDS: BROVANA IN SCH ×2 (09:04→21:04)
[2020-10-25] MEDS: PULMICORT NEB TX 0.5 MG NEB SCH ×2 (09:04→21:04)
[2020-10-25] MEDS: PEPCID TAB 40 MG PO SCH ×2 (10:00→20:40)
[2020-10-25] MEDS: IVERMECTIN PO SCH (10:00)
[2020-10-25] MEDS: CYTOTEC PO SCH ×4 (10:00→20:39)
[2020-10-25] MEDS: ZINC SULFATE PO SCH ×2 (10:00→20:39)
[2020-10-25] MEDS: VITAMIN D3 125 mcg (5,000 UNITS) PO SCH (10:00)
[2020-10-25] MEDS: FLUVOXAMINE MALEATE PO SCH ×2 (10:00→20:39)
[2020-10-25] MEDS: VITAMIN A PO SCH (10:00)
[2020-10-25] MEDS: ATIVAN TAB 0.5 MG PO SCH ×2 (10:00→20:40)
[2020-10-25] MEDS: PROTONIX INJ 40 MG VIAL IVP SCH ×2 (10:37→20:39)
[2020-10-25] MEDS: ZITHROMAX INJ 500 MG VIAL 500 MG in NS 250 ML IV 250 ML IV SCH (10:37)
[2020-10-25] MEDS: MELATONIN PO SCH (20:39)
[2020-10-25] MEDS: LOVENOX INJ 80 MG SYR SC SCH (20:41)
[2020-10-25 20:49] LABS: ALANINE AMINOTRANSFERASE 18 Units/L (12-78); ALBUMIN 2.1 g/dL (3.4-5.0); ALKALINE PHOSPHATASE 53 Units/L (46-116); ASPARTATE AMINO TRANSFERASE 25 Units/L (15-37); COR CA(FOR HYPOALB) 8.9 mg/dL (8.5-10.1); TOTAL PROTEIN 5.3 g/dL (6.4-8.2)
[2020-10-25 22:55] LABS: ALANINE AMINOTRANSFERASE 21 Units/L (12-78); ALBUMIN 2.1 g/dL (3.4-5.0); ALKALINE PHOSPHATASE 48 Units/L (46-116); ASPARTATE AMINO TRANSFERASE 25 Units/L (15-37); TOTAL PROTEIN 5.2 g/dL (6.4-8.2)
[2020-10-26] MEDS: SOLU-Medrol 125 MG VIAL IVP SCH ×3 (05:31→21:21)
[2020-10-26] MEDS: NS 1000 ML 1,000 ML IV SCH ×3 (05:31→21:22)
[2020-10-26] MEDS: ASCORBIC ACID INJ MULTI-DOSE VIAL 1,500 MG in NS 50 ML IV 50 ML IV SCH ×3 (05:31→21:21)
[2020-10-26] MEDS: ZOSYN VIAL 3.375 GRAMS 3.375 G in NS 100 ML IV + SPIKE MINIBAG* 100 ML IV SCH (05:31)
[2020-10-26] MEDS: PULMICORT NEB TX 0.5 MG NEB SCH ×2 (09:13→20:31)
[2020-10-26] MEDS: BROVANA IN SCH ×2 (09:13→20:31)
[2020-10-26] MEDS: CYTOTEC PO SCH ×4 (09:37→21:20)
[2020-10-26] MEDS: IVERMECTIN PO SCH (09:38)
[2020-10-26] MEDS: FLUVOXAMINE MALEATE PO SCH ×2 (09:38→21:21)
[2020-10-26] MEDS: PEPCID TAB 40 MG PO SCH ×2 (09:38→21:20)
[2020-10-26] MEDS: LOVENOX INJ 80 MG SYR SC SCH ×2 (09:38→21:20)
[2020-10-26] MEDS: PROTONIX INJ 40 MG VIAL IVP SCH ×2 (09:38→21:20)
[2020-10-26] MEDS: VITAMIN D3 125 mcg (5,000 UNITS) PO SCH (09:39)
[2020-10-26] MEDS: ZINC SULFATE PO SCH ×2 (09:39→21:21)
[2020-10-26] MEDS: VITAMIN A PO SCH (09:39)
[2020-10-26] MEDS: ZITHROMAX INJ 500 MG VIAL 500 MG in NS 250 ML IV 250 ML IV SCH (09:39)
[2020-10-26 10:37] LABS: BASOPHILS # (AUTO) 0.1 X10^3/uL (0.0-0.1); HEMATOCRIT 39.9 % (42.0-54.0); HEMOGLOBIN 13.6 g/dL (13.5-18.0); LYMPHOCYTES # (AUTO) 0.1 X10^3/uL (1.3-2.9); LYMPHOCYTES % (AUTO) 0.9 % (21.0-51.0); MEAN CORPUSCULAR HEMOGLOBIN 29.2 pg (27.0-34.0); MEAN CORPUSCULAR HGB CONC 34.1 g/dL (33.0-35.0); MEAN CORPUSCULAR VOLUME 85.6 fL (80.0-100.0); MEAN PLATELET VOLUME 7.4 fL (7.4-11.0); MONOCYTES # (AUTO) 0.7 x10^3/uL (0.3-0.8); MONOCYTES % (AUTO) 4.5 % (0.0-13.0); NEUTROPHILS # (AUTO) 13.7 x10^3/uL (2.2-4.8); NEUTROPHILS % (AUTO) 93.6 % (42.0-75.0); PLATELET COUNT 297 X10^3/uL (150.0-450.0); RED BLOOD COUNT 4.65 X10^6/uL (4.7-6.0); RED CELL DISTRIBUTION WIDTH 13.1 % (11.6-16.5); WHITE BLOOD COUNT 14.6 X10^3/uL (3.6-10.0)
[2020-10-26 10:47] LABS: ALANINE AMINOTRANSFERASE 25 Units/L (12-78); ALBUMIN 1.9 g/dL (3.4-5.0); ALKALINE PHOSPHATASE 57 Units/L (46-116); ASPARTATE AMINO TRANSFERASE 24 Units/L (15-37); BLOOD UREA NITROGEN 20 mg/dL (7-18); CALCIUM 7.6 mg/dL (8.5-10.1); CARBON DIOXIDE 33.3 mmol/L (21-32); CHLORIDE 105 mmol/L (98-107); COR CA(FOR HYPOALB) 9.3 mg/dL (8.5-10.1); COR NA(FOR HYPERGLY) 142 mmol/L (136-145); CREATININE 0.84 mg/dL (0.70-1.30); SODIUM 140 mmol/L (136-145); TOTAL PROTEIN 5.5 g/dL (6.4-8.2); eGFR NON BLACK RACES > 60 (>60)
[2020-10-26 11:03] LABS: PLATELET MORPHOLOGY COMMENT NORMAL (NORMAL)
[2020-10-26 11:13] LABS: ABG BASE EXCESS 8.8 mmol/L (-2.0-2.0); ABG HCO3 32.7 mmol/L (22-26)
[2020-10-26] MEDS: HumuLIN R SC PRN (21:21)
[2020-10-26] MEDS: MELATONIN PO SCH (21:21)
[2020-10-26] MEDS: ATIVAN TAB 0.5 MG PO PRN (22:50)
[2020-10-26] MEDS: TUSSIONEX PENNKINETIC SUSP PO PRN (22:50)
[2020-10-27] MEDS: NS 1000 ML 1,000 ML IV SCH ×3 (00:19→16:59)
[2020-10-27] MEDS: SOLU-Medrol 125 MG VIAL IVP SCH ×3 (05:52→21:43)
[2020-10-27] MEDS: ASCORBIC ACID INJ MULTI-DOSE VIAL 1,500 MG in NS 50 ML IV 50 ML IV SCH ×3 (06:00→21:43)
[2020-10-27 06:10] LABS: BASOPHILS % (AUTO) 0.1 % (0.2-1.0); HEMATOCRIT 36.8 % (42.0-54.0); HEMOGLOBIN 12.6 g/dL (13.5-18.0); LYMPHOCYTES # (AUTO) 0.2 X10^3/uL (1.3-2.9); LYMPHOCYTES % (AUTO) 1.1 % (21.0-51.0); MEAN CORPUSCULAR HEMOGLOBIN 28.9 pg (27.0-34.0); MEAN CORPUSCULAR HGB CONC 34.1 g/dL (33.0-35.0); MEAN CORPUSCULAR VOLUME 84.8 fL (80.0-100.0); MEAN PLATELET VOLUME 7.8 fL (7.4-11.0); MONOCYTES # (AUTO) 0.7 x10^3/uL (0.3-0.8); MONOCYTES % (AUTO) 4.8 % (0.0-13.0); PLATELET COUNT 259 X10^3/uL (150.0-450.0); RED BLOOD COUNT 4.34 X10^6/uL (4.7-6.0); RED CELL DISTRIBUTION WIDTH 13.1 % (11.6-16.5); WHITE BLOOD COUNT 14.9 X10^3/uL (3.6-10.0)
[2020-10-27 06:19] LABS: ALANINE AMINOTRANSFERASE 29 Units/L (12-78); ALBUMIN 1.8 g/dL (3.4-5.0); ALKALINE PHOSPHATASE 53 Units/L (46-116); ASPARTATE AMINO TRANSFERASE 24 Units/L (15-37); BLOOD UREA NITROGEN 19 mg/dL (7-18); CALCIUM 7.5 mg/dL (8.5-10.1); CHLORIDE 106 mmol/L (98-107); COR CA(FOR HYPOALB) 9.3 mg/dL (8.5-10.1); COR NA(FOR HYPERGLY) 142 mmol/L (136-145); CREATININE 0.69 mg/dL (0.70-1.30); SODIUM 141 mmol/L (136-145); TOTAL PROTEIN 5.1 g/dL (6.4-8.2); eGFR NON BLACK RACES > 60 (>60)
[2020-10-27 08:41] LABS: PLATELET MORPHOLOGY COMMENT NORMAL (NORMAL)
[2020-10-27] MEDS: BROVANA IN SCH ×2 (09:00→20:50)
[2020-10-27] MEDS: PULMICORT NEB TX 0.5 MG NEB SCH ×2 (09:00→20:50)
[2020-10-27] MEDS: CYTOTEC PO SCH ×4 (10:38→21:41)
[2020-10-27] MEDS: VITAMIN D3 125 mcg (5,000 UNITS) PO SCH (10:38)
[2020-10-27] MEDS: ZINC SULFATE PO SCH ×2 (10:38→21:43)
[2020-10-27] MEDS: ZITHROMAX INJ 500 MG VIAL 500 MG in NS 250 ML IV 250 ML IV SCH (10:38)
[2020-10-27] MEDS: PROTONIX INJ 40 MG VIAL IVP SCH ×2 (10:39→21:43)
[2020-10-27] MEDS: PEPCID TAB 40 MG PO SCH ×2 (10:39→21:42)
[2020-10-27] MEDS: IVERMECTIN PO SCH (10:39)
[2020-10-27] MEDS: VITAMIN A PO SCH (10:39)
[2020-10-27] MEDS: FLUVOXAMINE MALEATE PO SCH ×2 (10:40→21:41)
[2020-10-27] MEDS: LOVENOX INJ 80 MG SYR SC SCH ×2 (10:40→21:41)
[2020-10-27] MEDS: TUSSIONEX PENNKINETIC SUSP PO PRN (10:50)
[2020-10-27] MEDS: HumuLIN R SC PRN (12:21)
[2020-10-27] MEDS: DIFLUCAN 200 MG IV PREMIX* 200 MG/100 ML BAG IV SCH (13:50)
[2020-10-27] MEDS: MELATONIN PO SCH (21:42)
[2020-10-28] MEDS: SOLU-Medrol 125 MG VIAL IVP SCH ×3 (05:38→21:03)
[2020-10-28] MEDS: ASCORBIC ACID INJ MULTI-DOSE VIAL 1,500 MG in NS 50 ML IV 50 ML IV SCH ×3 (05:38→21:03)
[2020-10-28 06:15] LABS: BASOPHILS % (AUTO) 0.1 % (0.2-1.0); HEMATOCRIT 37.2 % (42.0-54.0); HEMOGLOBIN 12.6 g/dL (13.5-18.0); LYMPHOCYTES # (AUTO) 0.2 X10^3/uL (1.3-2.9); LYMPHOCYTES % (AUTO) 1.4 % (21.0-51.0); MEAN CORPUSCULAR VOLUME 85.2 fL (80.0-100.0); MEAN PLATELET VOLUME 8.3 fL (7.4-11.0); MONOCYTES # (AUTO) 0.6 x10^3/uL (0.3-0.8); NEUTROPHILS # (AUTO) 13.7 x10^3/uL (2.2-4.8); NEUTROPHILS % (AUTO) 94.5 % (42.0-75.0); PLATELET COUNT 230 X10^3/uL (150.0-450.0); RED BLOOD COUNT 4.36 X10^6/uL (4.7-6.0); RED CELL DISTRIBUTION WIDTH 13.2 % (11.6-16.5); WHITE BLOOD COUNT 14.5 X10^3/uL (3.6-10.0)
[2020-10-28 06:42] LABS: ALANINE AMINOTRANSFERASE 36 Units/L (12-78); ALBUMIN 1.8 g/dL (3.4-5.0); ALKALINE PHOSPHATASE 78 Units/L (46-116); ASPARTATE AMINO TRANSFERASE 26 Units/L (15-37); BLOOD UREA NITROGEN 17 mg/dL (7-18); CALCIUM 7.4 mg/dL (8.5-10.1); CARBON DIOXIDE 30.1 mmol/L (21-32); CHLORIDE 105 mmol/L (98-107); COR CA(FOR HYPOALB) 9.2 mg/dL (8.5-10.1); COR NA(FOR HYPERGLY) 142 mmol/L (136-145); CREATININE 0.65 mg/dL (0.70-1.30); SODIUM 141 mmol/L (136-145); TOTAL PROTEIN 5.2 g/dL (6.4-8.2); eGFR NON BLACK RACES > 60 (>60)
[2020-10-28 08:36] LABS: PLATELET MORPHOLOGY COMMENT NORMAL (NORMAL)
[2020-10-28] MEDS ORDERED: AVELOX TAB 400 MG PO SCH (09:00)
--- NOTE | 2020-10-28 09:36 | RAD ---
HISTORYworsening pulmonary statusSTUDYCHEST, 1 [id number]/16/2021.TECHNIQUEAP view of the chestFINDINGSCardiac and mediastinal contours are within normal limits. No significant change in moderate to severe bilateral airspace opacities. No definite pleural effusion or pneumothorax.IMPRESSIONNo significant change. Stable bilateral pneumonia radiographically.Electronically signed by: Darrick Cagle (Oct 28, 2020 09:33:49)
[2020-10-28 09:49] LABS: ABG BASE EXCESS 8.1 mmol/L (-2.0-2.0)
[2020-10-28 09:50] LABS: ABG ALLEN TEST POS; ABG HCO3 32.8 mmol/L (22-26)
[2020-10-28] MEDS: BROVANA IN SCH ×2 (09:51→21:00)
[2020-10-28] MEDS: PULMICORT NEB TX 0.5 MG NEB SCH ×2 (09:51→21:00)
[2020-10-28] MEDS: PROTONIX INJ 40 MG VIAL IVP SCH ×2 (10:00→20:37)
[2020-10-28] MEDS: DIFLUCAN 200 MG IV PREMIX* 200 MG/100 ML BAG IV SCH (10:00)
[2020-10-28] MEDS: LOVENOX INJ 80 MG SYR SC SCH ×2 (10:00→21:02)
[2020-10-28] MEDS ORDERED: PHARMACY CONSULT - VANCOMYCIN XX SCH (10:00)
[2020-10-28] MEDS: CYTOTEC PO SCH ×4 (11:12→21:02)
[2020-10-28] MEDS: VITAMIN D3 125 mcg (5,000 UNITS) PO SCH (11:12)
[2020-10-28] MEDS: ZINC SULFATE PO SCH ×2 (11:12→21:03)
[2020-10-28] MEDS: VITAMIN A PO SCH (11:12)
[2020-10-28] MEDS: FLUVOXAMINE MALEATE PO SCH ×2 (11:13→21:02)
[2020-10-28] MEDS: NS 1000 ML 1,000 ML IV SCH ×3 (11:13→16:48)
[2020-10-28] MEDS: PEPCID TAB 40 MG PO SCH ×2 (11:13→21:03)
[2020-10-28] MEDS: AVELOX IV 400 MG/250 ML BAG 400 MG/250 ML PIGGYBACK IV SCH (11:46)
[2020-10-28] MEDS: VANCOMYCIN IV *PREMIX 1.25 G/250 ML BAG 1.25 G/250 ML PIGGYBACK IV SCH ×2 (11:47→20:37)
[2020-10-28] MEDS: MORPHINE SULFATE INJ 2 MG INJ IVP PRN ×2 (16:15→21:04)
[2020-10-28] MEDS: MELATONIN PO SCH (21:03)
[2020-10-29] MEDS: NS 1000 ML 1,000 ML IV SCH ×3 (01:17→17:30)
[2020-10-29 02:26] LABS: ABG BASE EXCESS 5.6 mmol/L (-2.0-2.0)
[2020-10-29 02:27] LABS: ABG HCO3 31.6 mmol/L (22-26)
[2020-10-29 02:28] LABS: ABG ALLEN TEST POS
[2020-10-29] MEDS: MORPHINE SULFATE INJ 2 MG INJ IVP PRN ×2 (02:29→18:05)
[2020-10-29 05:28] LABS: BASOPHILS % (AUTO) 0.3 % (0.2-1.0); HEMOGLOBIN 13.6 g/dL (13.5-18.0); LYMPHOCYTES # (AUTO) 0.2 X10^3/uL (1.3-2.9); MEAN CORPUSCULAR HEMOGLOBIN 29.1 pg (27.0-34.0); MEAN CORPUSCULAR VOLUME 85.5 fL (80.0-100.0); MEAN PLATELET VOLUME 8.3 fL (7.4-11.0); MONOCYTES # (AUTO) 0.7 x10^3/uL (0.3-0.8); MONOCYTES % (AUTO) 4.5 % (0.0-13.0); NEUTROPHILS # (AUTO) 13.9 x10^3/uL (2.2-4.8); NEUTROPHILS % (AUTO) 94.2 % (42.0-75.0); PLATELET COUNT 248 X10^3/uL (150.0-450.0); RED BLOOD COUNT 4.68 X10^6/uL (4.7-6.0); RED CELL DISTRIBUTION WIDTH 13.1 % (11.6-16.5); WHITE BLOOD COUNT 14.8 X10^3/uL (3.6-10.0)
[2020-10-29] MEDS: ASCORBIC ACID INJ MULTI-DOSE VIAL 1,500 MG in NS 50 ML IV 50 ML IV SCH ×4 (05:28→22:00)
[2020-10-29] MEDS: SOLU-Medrol 125 MG VIAL IVP SCH ×3 (05:29→22:30)
--- NOTE | 2020-10-29 05:44 | RAD ---
HISTORYcovidSTUDYPortable AP chestCOMPARISONAugust 2020FINDINGSSimilar stat stable heart size. Persistent bilateral airspace disease is essentially unchanged, left lung greater than right. No complicating pneumothorax or developing pleural effusion is demonstrated.IMPRESSIONLittle if any significant change in degree or distribution of bilateral pneumonia.Electronically signed by: SHYLA FRASER (Oct 29, 2020 05:42:59)
[2020-10-29 05:48] LABS: ALANINE AMINOTRANSFERASE 45 Units/L (12-78); ALBUMIN 2.2 g/dL (3.4-5.0); ALKALINE PHOSPHATASE 66 Units/L (46-116); ASPARTATE AMINO TRANSFERASE 25 Units/L (15-37); BLOOD UREA NITROGEN 19 mg/dL (7-18); CALCIUM 7.9 mg/dL (8.5-10.1); CARBON DIOXIDE 31.2 mmol/L (21-32); CHLORIDE 103 mmol/L (98-107); COR CA(FOR HYPOALB) 9.3 mg/dL (8.5-10.1); COR NA(FOR HYPERGLY) 142 mmol/L (136-145); CREATININE 0.71 mg/dL (0.70-1.30); SODIUM 141 mmol/L (136-145); TOTAL PROTEIN 6.1 g/dL (6.4-8.2); eGFR NON BLACK RACES > 60 (>60)
[2020-10-29 06:12] LABS: PLATELET MORPHOLOGY COMMENT NORMAL (NORMAL)
[2020-10-29] MEDS: CYTOTEC PO SCH ×4 (08:36→21:00)
[2020-10-29] MEDS: ZINC SULFATE PO SCH (08:37)
[2020-10-29] MEDS: FLUVOXAMINE MALEATE PO SCH (08:38)
[2020-10-29] MEDS: PEPCID TAB 40 MG PO SCH ×2 (08:38→21:00)
[2020-10-29] MEDS: LOVENOX INJ 80 MG SYR SC SCH ×2 (08:38→22:29)
[2020-10-29] MEDS: VANCOMYCIN IV *PREMIX 1.25 G/250 ML BAG 1.25 G/250 ML PIGGYBACK IV SCH ×2 (08:39→22:28)
[2020-10-29] MEDS: PROTONIX INJ 40 MG VIAL IVP SCH ×2 (08:39→22:29)
[2020-10-29] MEDS: VITAMIN D3 125 mcg (5,000 UNITS) PO SCH (08:39)
[2020-10-29] MEDS: VITAMIN A PO SCH (08:40)
[2020-10-29] MEDS: AVELOX IV 400 MG/250 ML BAG 400 MG/250 ML PIGGYBACK IV SCH (08:41)
[2020-10-29] MEDS: BROVANA IN SCH ×2 (09:10→20:30)
[2020-10-29] MEDS: PULMICORT NEB TX 0.5 MG NEB SCH ×2 (09:15→20:30)
[2020-10-29] MEDS: DIFLUCAN 200 MG IV PREMIX* 200 MG/100 ML BAG IV SCH (10:00)
[2020-10-29] MEDS ORDERED: PHARMACY COMMENT IV NR (20:30)
[2020-10-29 21:24] LABS: CREATININE 0.71 mg/dL (0.70-1.30); VANCOMYCIN,TROUGH 3.4 ug/mL (15-20)
[2020-10-30 02:12] LABS: CKMB % 0.7 % (<4); CREATINE KINASE 191 Units/L (39-308); CREATINE KINASE MB 1.3 ng/mL (0-4.0); TROPONIN I < 0.02 ng/mL (0-1.5)
[2020-10-30] MEDS: FLUVOXAMINE MALEATE PO SCH ×3 (02:42→21:50)
[2020-10-30] MEDS: COLACE CAP 100 MG PO SCH ×2 (02:42→21:27)
[2020-10-30] MEDS: MELATONIN PO SCH ×2 (02:43→23:29)
[2020-10-30] MEDS: ZINC SULFATE PO SCH ×3 (02:43→21:29)
[2020-10-30] MEDS: MILK OF MAGNESIA PO SCH ×2 (02:43→21:31)
[2020-10-30] MEDS: NS 1000 ML 1,000 ML IV SCH ×3 (02:44→17:03)
[2020-10-30 06:09] LABS: BASOPHILS % (AUTO) 0.2 % (0.2-1.0); HEMATOCRIT 38.3 % (42.0-54.0); HEMOGLOBIN 13.2 g/dL (13.5-18.0); LYMPHOCYTES # (AUTO) 0.3 X10^3/uL (1.3-2.9); LYMPHOCYTES % (AUTO) 1.8 % (21.0-51.0); MEAN CORPUSCULAR HEMOGLOBIN 29.3 pg (27.0-34.0); MEAN CORPUSCULAR HGB CONC 34.3 g/dL (33.0-35.0); MEAN CORPUSCULAR VOLUME 85.2 fL (80.0-100.0); MEAN PLATELET VOLUME 8.4 fL (7.4-11.0); MONOCYTES # (AUTO) 0.7 x10^3/uL (0.3-0.8); MONOCYTES % (AUTO) 4.6 % (0.0-13.0); NEUTROPHILS # (AUTO) 13.9 x10^3/uL (2.2-4.8); NEUTROPHILS % (AUTO) 93.4 % (42.0-75.0); PLATELET COUNT 192 X10^3/uL (150.0-450.0); WHITE BLOOD COUNT 14.9 X10^3/uL (3.6-10.0)
[2020-10-30] MEDS: ASCORBIC ACID INJ MULTI-DOSE VIAL 1,500 MG in NS 50 ML IV 50 ML IV SCH ×3 (06:19→21:50)
[2020-10-30] MEDS: SOLU-Medrol 125 MG VIAL IVP SCH ×3 (06:20→21:28)
[2020-10-30 06:23] LABS: ALANINE AMINOTRANSFERASE 41 Units/L (12-78); ALBUMIN 1.9 g/dL (3.4-5.0); ALKALINE PHOSPHATASE 60 Units/L (46-116); ASPARTATE AMINO TRANSFERASE 23 Units/L (15-37); BLOOD UREA NITROGEN 19 mg/dL (7-18); CALCIUM 7.5 mg/dL (8.5-10.1); CARBON DIOXIDE 32.4 mmol/L (21-32); CHLORIDE 105 mmol/L (98-107); COR CA(FOR HYPOALB) 9.2 mg/dL (8.5-10.1); COR NA(FOR HYPERGLY) 142 mmol/L (136-145); CREATININE 0.73 mg/dL (0.70-1.30); SODIUM 141 mmol/L (136-145); TOTAL PROTEIN 5.3 g/dL (6.4-8.2); eGFR NON BLACK RACES > 60 (>60)
[2020-10-30 08:10] LABS: ANISOCYTOSIS SLIGHT; PLATELET MORPHOLOGY COMMENT NORMAL (NORMAL)
[2020-10-30] MEDS: BROVANA IN SCH ×2 (09:39→21:10)
[2020-10-30] MEDS: PULMICORT NEB TX 0.5 MG NEB SCH ×2 (09:39→21:10)
[2020-10-30] MEDS: VITAMIN D3 125 mcg (5,000 UNITS) PO SCH (09:45)
[2020-10-30] MEDS: CYTOTEC PO SCH ×4 (09:45→21:28)
[2020-10-30] MEDS: AVELOX IV 400 MG/250 ML BAG 400 MG/250 ML PIGGYBACK IV SCH (09:45)
[2020-10-30] MEDS: TUSSIONEX PENNKINETIC SUSP PO PRN (09:45)
[2020-10-30] MEDS: VITAMIN A PO SCH (09:45)
[2020-10-30] MEDS: PROTONIX INJ 40 MG VIAL IVP SCH ×2 (09:46→21:30)
[2020-10-30] MEDS: PEPCID TAB 40 MG PO SCH ×2 (09:46→21:31)
[2020-10-30] MEDS ORDERED: LR 1000 ML IV 1,000 ML IV ONE (10:43)
[2020-10-30] MEDS: VANCOMYCIN IV *PREMIX 1.25 G/250 ML BAG 1.25 G/250 ML PIGGYBACK IV SCH ×2 (10:54→21:30)
[2020-10-30] MEDS: DIFLUCAN 200 MG IV PREMIX* 200 MG/100 ML BAG IV SCH (12:25)
[2020-10-30] MEDS: LOVENOX INJ 80 MG SYR SC SCH ×2 (12:32→21:50)
[2020-10-30] MEDS: MORPHINE SULFATE INJ 2 MG INJ IVP PRN ×2 (12:35→18:12)
--- NOTE | 2020-10-30 13:05 | RAD ---
HISTORYCOVID-19 pneumoniaSTUDYPortable AP chestCOMPARISONAugust 2020FINDINGSHeart size and contour are normal. Persistent bilateral interstitial and airspace disease again noted with slight improvement in the left lung but increasing segmental consolidation in the right upper lobe. No definite pleural fluid or pneumothorax seen.IMPRESSIONPersistent bilateral pneumonia, increasing slightly in the left lung but progressing in the anterior segment right upper lobe.Electronically signed by: SHYLA FRASER (Oct 30, 2020 13:03:23)
[2020-10-30] MEDS: LINZESS PO ONE ×2 (15:11→17:36)
[2020-10-30 15:30] LABS: BILIRUBIN,URINE NEGATIVE (NEGATIVE); BLOOD/HEMOGLOBIN,URINE 2+ (NEGATIVE); GLUCOSE, URINE 1+ (NEGATIVE); KETONES,URINE NEGATIVE (NEGATIVE); LEUKOCYTE ESTERASE ,URINE NEGATIVE (NEGATIVE); NITRITES,URINE NEGATIVE (NEGATIVE); PROTEIN,URINE 2+ (NEGATIVE); UROBILINOGEN,URINE 1+ (NORMAL)
[2020-10-30 15:33] LABS: APPEARANCE,URINE CLEAR (CLEAR); COLOR,URINE YELLOW (YELLOW)
[2020-10-30 15:41] LABS: BACTERIA,URINE TRACE /HPF (NEGATIVE); SQUAMOUS EPITHELIAL CELL,UR RARE /HPF (NEGATIVE); TRANSITIONAL EPI CELLS,URINE FEW /HPF (NEGATIVE)
[2020-10-30 15:42] LABS: AMORPHOUS SEDIMENT,UR TRACE /HPF (NEGATIVE); HYALINE CASTS, URINE FEW /LPF (NEGATIVE); MUCUS,URINE MODERATE /HPF (NEGATIVE); RED BLOOD CELL CASTS,URINE RARE /LPF (NEGATIVE)
[2020-10-30] MEDS ORDERED: LINZESS PO ONE (17:05)
[2020-10-31] MEDS: NS 1000 ML 1,000 ML IV SCH ×3 (01:50→17:01)
[2020-10-31 05:39] LABS: BASOPHILS % (AUTO) 0.3 % (0.2-1.0); HEMOGLOBIN 12.3 g/dL (13.5-18.0); LYMPHOCYTES # (AUTO) 0.2 X10^3/uL (1.3-2.9); LYMPHOCYTES % (AUTO) 1.1 % (21.0-51.0); MEAN CORPUSCULAR HGB CONC 34.1 g/dL (33.0-35.0); MEAN CORPUSCULAR VOLUME 85.1 fL (80.0-100.0); MONOCYTES # (AUTO) 0.7 x10^3/uL (0.3-0.8); MONOCYTES % (AUTO) 4.4 % (0.0-13.0); NEUTROPHILS # (AUTO) 14.6 x10^3/uL (2.2-4.8); NEUTROPHILS % (AUTO) 94.2 % (42.0-75.0); PLATELET COUNT 166 X10^3/uL (150.0-450.0); RED BLOOD COUNT 4.23 X10^6/uL (4.7-6.0); RED CELL DISTRIBUTION WIDTH 12.9 % (11.6-16.5); WHITE BLOOD COUNT 15.5 X10^3/uL (3.6-10.0)
[2020-10-31] MEDS: ASCORBIC ACID INJ MULTI-DOSE VIAL 1,500 MG in NS 50 ML IV 50 ML IV SCH ×3 (05:46→22:09)
[2020-10-31] MEDS: SOLU-Medrol 125 MG VIAL IVP SCH ×2 (05:47→13:43)
[2020-10-31 06:06] LABS: ALANINE AMINOTRANSFERASE 37 Units/L (12-78); ALBUMIN 1.7 g/dL (3.4-5.0); ALKALINE PHOSPHATASE 61 Units/L (46-116); ASPARTATE AMINO TRANSFERASE 28 Units/L (15-37); BLOOD UREA NITROGEN 19 mg/dL (7-18); CALCIUM 7.2 mg/dL (8.5-10.1); CARBON DIOXIDE 31.3 mmol/L (21-32); CHLORIDE 106 mmol/L (98-107); COR NA(FOR HYPERGLY) 142 mmol/L (136-145); CREATININE 0.62 mg/dL (0.70-1.30); SODIUM 141 mmol/L (136-145); TOTAL PROTEIN 4.8 g/dL (6.4-8.2); eGFR NON BLACK RACES > 60 (>60)
[2020-10-31 06:41] LABS: PLATELET MORPHOLOGY COMMENT NORMAL (NORMAL)
[2020-10-31] MEDS: VANCOMYCIN IV *PREMIX 1.25 G/250 ML BAG 1.25 G/250 ML PIGGYBACK IV SCH (08:43)
[2020-10-31] MEDS: CYTOTEC PO SCH ×4 (09:15→21:20)
[2020-10-31] MEDS: VITAMIN A PO SCH (09:16)
[2020-10-31] MEDS: ZINC SULFATE PO SCH ×2 (09:16→21:20)
[2020-10-31] MEDS: FLUVOXAMINE MALEATE PO SCH ×2 (09:16→21:20)
[2020-10-31] MEDS: LOVENOX INJ 80 MG SYR SC SCH ×2 (09:17→22:38)
[2020-10-31] MEDS: VITAMIN D3 125 mcg (5,000 UNITS) PO SCH (09:18)
[2020-10-31] MEDS: PEPCID TAB 40 MG PO SCH ×2 (09:19→21:20)
[2020-10-31] MEDS: PROTONIX INJ 40 MG VIAL IVP SCH (09:19)
[2020-10-31] MEDS: AVELOX IV 400 MG/250 ML BAG 400 MG/250 ML PIGGYBACK IV SCH (10:02)
[2020-10-31] MEDS: PULMICORT NEB TX 0.5 MG NEB SCH ×2 (10:32→21:40)
[2020-10-31] MEDS: BROVANA IN SCH ×2 (10:32→21:40)
[2020-10-31] MEDS: HumuLIN R SC PRN (11:54)
[2020-10-31] MEDS ORDERED: BUTT CREAM (COMPOUND) ONE (14:27)
[2020-10-31] MEDS: BUTT CREAM (COMPOUND) TOP PRN ×2 (14:30→23:45)
[2020-10-31] MEDS: DIFLUCAN 200 MG IV PREMIX* 200 MG/100 ML BAG IV SCH (15:34)
[2020-10-31] MEDS: VANCOMYCIN IV *PREMIX 1 G/200 ML BAG 1 G/200 ML PIGGYBACK IV SCH (16:45)
[2020-10-31] MEDS: MORPHINE SULFATE INJ 2 MG INJ IVP PRN (21:20)
[2020-10-31] MEDS: MELATONIN PO SCH (21:20)
[2020-10-31] MEDS: COLACE CAP 100 MG PO SCH (21:20)
[2020-10-31] MEDS: MILK OF MAGNESIA PO SCH (21:46)
[2020-10-31] MEDS: ATIVAN TAB 0.5 MG PO PRN (23:36)
[2020-11-01] MEDS: VANCOMYCIN IV *PREMIX 1 G/200 ML BAG 1 G/200 ML PIGGYBACK IV SCH ×4 (00:15→22:04)
[2020-11-01] MEDS: NS 1000 ML 1,000 ML IV SCH ×3 (00:38→18:14)
[2020-11-01 04:01] LABS: ABG BASE EXCESS 7.9 mmol/L (-2.0-2.0)
[2020-11-01 04:03] LABS: ABG ALLEN TEST POS; ABG HCO3 30.6 mmol/L (22-26)
[2020-11-01 04:59] LABS: BASOPHILS % (AUTO) 0.2 % (0.2-1.0); HEMATOCRIT 36.3 % (42.0-54.0); HEMOGLOBIN 12.4 g/dL (13.5-18.0); LYMPHOCYTES # (AUTO) 0.2 X10^3/uL (1.3-2.9); LYMPHOCYTES % (AUTO) 1.4 % (21.0-51.0); MEAN CORPUSCULAR HEMOGLOBIN 29.3 pg (27.0-34.0); MEAN CORPUSCULAR HGB CONC 34.2 g/dL (33.0-35.0); MEAN CORPUSCULAR VOLUME 85.6 fL (80.0-100.0); MEAN PLATELET VOLUME 8.3 fL (7.4-11.0); MONOCYTES # (AUTO) 0.6 x10^3/uL (0.3-0.8); MONOCYTES % (AUTO) 3.4 % (0.0-13.0); NEUTROPHILS # (AUTO) 15.7 x10^3/uL (2.2-4.8); PLATELET COUNT 138 X10^3/uL (150.0-450.0); RED BLOOD COUNT 4.24 X10^6/uL (4.7-6.0); RED CELL DISTRIBUTION WIDTH 13.1 % (11.6-16.5); WHITE BLOOD COUNT 16.6 X10^3/uL (3.6-10.0)
[2020-11-01 05:25] LABS: ALANINE AMINOTRANSFERASE 39 Units/L (12-78); ALBUMIN 1.8 g/dL (3.4-5.0); ALKALINE PHOSPHATASE 57 Units/L (46-116); ASPARTATE AMINO TRANSFERASE 26 Units/L (15-37); BLOOD UREA NITROGEN 18 mg/dL (7-18); CALCIUM 7.2 mg/dL (8.5-10.1); CARBON DIOXIDE 27.2 mmol/L (21-32); CHLORIDE 108 mmol/L (98-107); COR NA(FOR HYPERGLY) 143 mmol/L (136-145); CREATININE 0.69 mg/dL (0.70-1.30); SODIUM 142 mmol/L (136-145); TOTAL PROTEIN 4.7 g/dL (6.4-8.2); eGFR NON BLACK RACES > 60 (>60)
[2020-11-01] MEDS ORDERED: DIPRIVAN PREMIX 1 GRAM IV 1,000 MG/100 ML VIAL ONE (05:33)
[2020-11-01 05:47] LABS: PLATELET MORPHOLOGY COMMENT NORMAL (NORMAL)
[2020-11-01] MEDS ORDERED: QUELICIN (OR ANECTINE) ONE (05:59)
[2020-11-01] MEDS ORDERED: AMIDATE INJ 40 MG VIAL ONE (05:59)
[2020-11-01] MEDS: DIPRIVAN PREMIX 1 GRAM IV 1,000 MG/100 ML VIAL IV PRN ×4 (06:24→23:05)
[2020-11-01] MEDS ORDERED: NS 500 ML IV 500 ML IV ONE (06:37)
[2020-11-01] MEDS ORDERED: ZEMURON 100 MG VIAL ONE (06:38)
--- NOTE | 2020-11-01 06:43 | RAD ---
HISTORYET TUBE PLACEMENTSTUDYCHEST, 1 [id number]/22/2021.TECHNIQUEAP view of the chestFINDINGSET tube in good position. Cardiac and mediastinal contours are within normal limits. Interval worsening of bilateral airspace opacities compared to prior study with some sparing of the right upper lobe. No discernible pleural effusion or pneumothorax.IMPRESSIONET tube in good position. Interval worsening of bilateral airspace opacities from COVID 19 pneumonia.Electronically signed by: Darrick Cagle (Nov 01, 2020 06:40:54)
[2020-11-01] MEDS: MORPHINE SULFATE INJ 2 MG INJ IVP PRN (06:56)
[2020-11-01] MEDS: ZEMURON 100 MG VIAL 500 MG in NS 500 ML IV 450 ML IV SCH ×4 (07:00→23:43)
[2020-11-01] MEDS: VERSED 100 MG in NS 100 ML IV 80 ML IV PRN ×3 (07:10→18:40)
[2020-11-01] MEDS: SOLU-Medrol 125 MG VIAL IVP SCH ×4 (08:06→22:02)
[2020-11-01] MEDS: ASCORBIC ACID INJ MULTI-DOSE VIAL 1,500 MG in NS 50 ML IV 50 ML IV SCH ×3 (08:06→22:04)
[2020-11-01] MEDS: BROVANA IN SCH ×2 (09:05→20:30)
[2020-11-01] MEDS: PULMICORT NEB TX 0.5 MG NEB SCH ×2 (09:05→20:30)
[2020-11-01] MEDS ORDERED: IVERMECTIN PO ONE (10:13)
[2020-11-01] MEDS: FLUVOXAMINE MALEATE PO SCH ×2 (11:45→22:02)
[2020-11-01] MEDS: CYTOTEC PO SCH ×3 (11:45→22:03)
[2020-11-01] MEDS: PEPCID TAB 40 MG PO SCH ×2 (11:45→22:03)
[2020-11-01] MEDS: ZINC SULFATE PO SCH ×2 (11:46→22:02)
[2020-11-01] MEDS: VITAMIN A PO SCH (11:46)
[2020-11-01] MEDS: VITAMIN D3 125 mcg (5,000 UNITS) PO SCH (11:46)
--- NOTE | 2020-11-01 12:20 | RAD ---
HISTORYNG TUBE PLACEMENTSTUDYKUBCOMPARISONSame day chest radiograph.TECHNIQUEKUB abdomen 2 imagesFINDINGSNG tube in good position. Nonobstructive bowel gas pattern. Cholecystectomy clips noted. Hazy and interstitial pulmonary opacities in the visualized lung.IMPRESSIONNG tube in good position.Electronically signed by: Darrick Cagle (Nov 01, 2020 12:18:41)
--- NOTE | 2020-11-01 12:21 | RAD ---
HISTORYCENTRAL LINE PLACEMENT SX: GB, BOWEL RESECTIONSTUDYCHEST, 1 VIEWCOMPARISONChest radiograph from earlier today.FINDINGSRight subclavian CVL is well positioned, terminating over the cavoatrial junction. An NG tube is well positioned, terminating below the left hemidiaphragm with side port distal to the GE junction. ET tube remains stable/satisfactory in position without pneumothorax. Left greater than right airspace disease appears essentially unchanged since earlier today. There is no significant pleural effusion.IMPRESSIONSatisfactory right subclavian CVL and NG tube placement without pneumothorax.Otherwise, stable chest exam.Electronically signed by: ALISON EDWARDS (Nov 01, 2020 12:19:32)
[2020-11-01] MEDS ORDERED: PHARMACY COMMENT IV ONE (13:30)
[2020-11-01] MEDS: AVELOX IV 400 MG/250 ML BAG 400 MG/250 ML PIGGYBACK IV SCH (15:04)
[2020-11-01] MEDS: LOVENOX INJ 80 MG SYR SC SCH ×2 (15:05→20:36)
[2020-11-01] MEDS: PROTONIX INJ 40 MG VIAL IVP SCH ×3 (15:05→22:02)
[2020-11-01 15:49] LABS: ABG BASE EXCESS 4.5 mmol/L (-2.0-2.0)
[2020-11-01 15:50] LABS: ABG ALLEN TEST POS; ABG HCO3 31.5 mmol/L (22-26)
[2020-11-01] MEDS: DIFLUCAN 200 MG IV PREMIX* 200 MG/100 ML BAG IV SCH (17:00)
[2020-11-01] MEDS: COLACE CAP 100 MG PO SCH (20:34)
[2020-11-01] MEDS: MILK OF MAGNESIA PO SCH (20:36)
[2020-11-01] MEDS: MELATONIN PO SCH (22:03)
[2020-11-02] MEDS: DIPRIVAN PREMIX 1 GRAM IV 1,000 MG/100 ML VIAL IV PRN ×3 (03:46→14:10)
[2020-11-02 04:33] LABS: ABG BASE EXCESS 7.1 mmol/L (-2.0-2.0)
[2020-11-02 04:34] LABS: ABG ALLEN TEST POS; ABG HCO3 34.1 mmol/L (22-26)
[2020-11-02 05:15] LABS: BASOPHILS % (AUTO) 0 % (0.2-1.0); HEMATOCRIT 30.9 % (42.0-54.0); HEMOGLOBIN 10.7 g/dL (13.5-18.0); LYMPHOCYTES # (AUTO) 0.2 X10^3/uL (1.3-2.9); LYMPHOCYTES % (AUTO) 1.6 % (21.0-51.0); MEAN CORPUSCULAR HEMOGLOBIN 29.9 pg (27.0-34.0); MEAN CORPUSCULAR HGB CONC 34.7 g/dL (33.0-35.0); MEAN CORPUSCULAR VOLUME 86.1 fL (80.0-100.0); MEAN PLATELET VOLUME 8.5 fL (7.4-11.0); MONOCYTES # (AUTO) 0.2 x10^3/uL (0.3-0.8); MONOCYTES % (AUTO) 1.8 % (0.0-13.0); NEUTROPHILS # (AUTO) 10.2 x10^3/uL (2.2-4.8); NEUTROPHILS % (AUTO) 96.6 % (42.0-75.0); PLATELET COUNT 109 X10^3/uL (150.0-450.0); RED BLOOD COUNT 3.59 X10^6/uL (4.7-6.0); WHITE BLOOD COUNT 10.5 X10^3/uL (3.6-10.0)
[2020-11-02 05:28] LABS: ALANINE AMINOTRANSFERASE 32 Units/L (12-78); ALBUMIN 1.5 g/dL (3.4-5.0); ALKALINE PHOSPHATASE 49 Units/L (46-116); ASPARTATE AMINO TRANSFERASE 16 Units/L (15-37); BLOOD UREA NITROGEN 14 mg/dL (7-18); CALCIUM 6.8 mg/dL (8.5-10.1); CARBON DIOXIDE 31.4 mmol/L (21-32); CHLORIDE 110 mmol/L (98-107); COR CA(FOR HYPOALB) 8.8 mg/dL (8.5-10.1); COR NA(FOR HYPERGLY) 144 mmol/L (136-145); CREATININE 0.49 mg/dL (0.70-1.30); SODIUM 143 mmol/L (136-145); TOTAL PROTEIN 4.2 g/dL (6.4-8.2); eGFR NON BLACK RACES > 60 (>60)
[2020-11-02] MEDS ORDERED: VERSED IV PREMIX 100 MG/100 ML IV.SOLN IV ONE (05:39)
[2020-11-02] MEDS: NS 1000 ML 1,000 ML IV SCH ×3 (05:58→17:07)
[2020-11-02] MEDS: VERSED 100 MG in NS 100 ML IV 80 ML IV PRN ×2 (05:59→16:54)
[2020-11-02 06:20] LABS: PLATELET MORPHOLOGY COMMENT NORMAL (NORMAL)
[2020-11-02] MEDS: ASCORBIC ACID INJ MULTI-DOSE VIAL 1,500 MG in NS 50 ML IV 50 ML IV SCH ×2 (06:39→15:00)
[2020-11-02] MEDS: SOLU-Medrol 125 MG VIAL IVP SCH ×3 (06:39→16:15)
[2020-11-02] MEDS: VANCOMYCIN IV *PREMIX 1 G/200 ML BAG 1 G/200 ML PIGGYBACK IV SCH ×2 (06:39→13:58)
--- NOTE | 2020-11-02 08:16 | RAD ---
HISTORYVENTILATOR DEPENDENCESTUDYCHEST, 1 [id number]/24/2021FINDINGSPatchy bilateral areas of opacity are present in the lungs typical for bronchopneumonia. Findings on the right side may have progressed. Findings on the left side may have improved.No pleural effusion or pneumothorax.Heart size is normal.Bones are unremarkable.The endotracheal tube is anatomic in position in the trachea. The enteric tube extends into the upper abdomen. Right subclavian central venous catheter is in the expected location of the superior vena cava. EKG leads are noted.IMPRESSION1. BronchopneumoniaElectronically signed by: Jimmy Lovett (Nov 02, 2020 08:13:45)
[2020-11-02] MEDS: ZEMURON 100 MG VIAL 500 MG in NS 500 ML IV 450 ML IV SCH ×2 (08:34→17:30)
[2020-11-02] MEDS: AVELOX IV 400 MG/250 ML BAG 400 MG/250 ML PIGGYBACK IV SCH (08:49)
[2020-11-02] MEDS: BROVANA IN SCH ×2 (09:10→10:31)
[2020-11-02] MEDS: PULMICORT NEB TX 0.5 MG NEB SCH (09:10)
[2020-11-02] MEDS: LOVENOX INJ 80 MG SYR SC SCH (09:29)
[2020-11-02] MEDS: PROTONIX INJ 40 MG VIAL IVP SCH (09:29)
[2020-11-02] MEDS: CYTOTEC PO SCH ×3 (09:34→18:02)
[2020-11-02] MEDS: ZINC SULFATE PO SCH (09:35)
[2020-11-02] MEDS: PEPCID TAB 40 MG PO SCH (09:35)
[2020-11-02] MEDS: FLUVOXAMINE MALEATE PO SCH (09:35)
[2020-11-02] MEDS: VITAMIN D3 125 mcg (5,000 UNITS) PO SCH (09:36)
[2020-11-02] MEDS: VITAMIN A PO SCH (09:36)
[2020-11-02] MEDS: DIFLUCAN 200 MG IV PREMIX* 200 MG/100 ML BAG IV SCH (09:58)
[2020-11-02] MEDS ORDERED: PHARMACY COMMENT IV NR (13:30)
[2020-11-02 15:15] LABS: CREATININE 0.52 mg/dL (0.70-1.30); VANCOMYCIN,TROUGH 8.4 ug/mL (15-20)
[2020-11-02] MEDS ORDERED: VANCOMYCIN IV *PREMIX 1.25 G/250 ML BAG 1.25 G/250 ML PIGGYBACK IV SCH (15:30)
[2020-11-02 19:38] VITALS: BP 127/76
[2020-11-03] MEDS ORDERED: SOLU-Medrol 125 MG VIAL IVP SCH (10:00)
[2020-11-03] MEDS ORDERED: PHARMACY COMMENT IV ONE (13:00)
== END 2020-11-02 19:15 | disposition short-term general hospital (02) | DRG 208 ==
LOC: ER 06:04 → OBS 07:36 → MED/SURG 10-17 18:15 → ICU 10-20 23:05
PROVIDERS: ADMIT Internal Medicine; ATTEND Internal Medicine
DX: U07.1 COVID-19; R09.02 Hypoxemia; F41.9 Anxiety disorder, unspecified; J12.81 Pneumonia due to SARS-associated coronavirus; E11.9 Type 2 diabetes mellitus without complications; R26.81 Unsteadiness on feet; M19.90 Unspecified osteoarthritis, unspecified site; E78.5 Hyperlipidemia, unspecified; E05.90 Thyrotoxicosis, unspecified without thyrotoxic crisis or storm; I87.2 Venous insufficiency (chronic) (peripheral)